=== PATIENT | female | born 1930 | race Caucasian/White ===

== ENCOUNTER 2017-02-08 23:18 | Emergency (ER) | payer MEDICARE, OTHER ==
[2017-02-08 23:42] VITALS: BP 172/76; PULSE 78; RESP 18; TEMP 98.2
[2017-02-09] MEDS ORDERED: FLUORESCEIN STRIPS 1 MG STRIP LEFT EYE ONE
--- NOTE | 2017-02-09 00:14 | ED ---
Eye Problem HPI - General Chief complaint: Eye Problems Stated complaint: Eye Problems Time Seen by Provider: 02/08/17 23:54 Source: patient Mode of arrival: ambulatory Limitations: no limitations - History of Present Illness Initial comments: is an 86-year-old female who takes daily aspirin who presents to the emergency department via private vehicle for evaluation of left eye redness. The patient reports that she was sitting in her home watching the news when she felt a foreign body sensation in her eye. Patient reports that she rubbed her eye and felt as though she might is scratched it. She reports that she noticed that her eye appeared red but decided she would wait and see if it got better. Patient reports that she sat in her home for approximately 2 hours, she states that she was watching the news of the devastating earthquake in [place] today and praying with her prayer book, which she does every night. Patient reports that she was getting ready to go to bed and went back to the restroom at which time she noticed that her left eye was significantly more red. She reports it looked as though there was blood in her eye. However there is no blood coming from her eye. Patient had no pain in her eye. She did put some lubricating eyedrops in her eye however this did not help. She showed her the findings of her eye and he insisted that she come to the emergency department for evaluation. She denies any pain in her eye, any vision changes, any foreign body sensation in her eye. She does report a history of this happening and her other eye, however that occurred spontaneously one morning she woke up and noticed there is blood in her eye she was evaluated by her eye doctor and advised that there was nothing to do. She became concerned about this because she was worried she may have caused injury to her eye when she wiped her eye earlier in the night. - Related Data Home Medications Medication Instructions Recorded Confirmed Aspirin [Adult Low Dose Aspirin EC] 81 mg PO DAILY 01/27/16 01/28/16 Atenolol [Tenormin] 50 mg PO DAILY 01/27/16 01/28/16 Biotin 5 mg PO DAILY 01/27/16 01/28/16 Fiber Powder 1 dose PO DIRECTED PRN 01/27/16 Meclizine [Antivert] 12.5 mg PO DAILY 01/27/16 01/28/16 Meloxicam [Mobic] 15 mg PO DAILY 01/27/16 01/28/16 Multivit-Min/FA/Lycopen/Lutein 1 each PO DAILY 01/27/16 01/28/16 [Centrum Silver Tablet] Vitamin B Complex 1 each PO DAILY 01/27/16 01/27/16 traMADol HCL [Ultram] 50 mg PO TID PRN 01/27/16 01/28/16 Allergies Allergy/AdvReac Type Severity Reaction Status Date / Time UNCOATED ASPIRIN AdvReac Unknown STOMACH Uncoded 02/08/17 23:36 PAIN Review of Systems ROS Statement: Those systems with pertinent positive or pertinent negative responses have been documented in the HPI. ROS Other: All systems not noted in ROS Statement are negative. Constitutional: Denies: fever Eyes: Reports: as per HPI. Denies: eye pain, eye discharge, vision change ENT: Denies: throat pain Respiratory: Denies: cough, dyspnea Cardiovascular: Denies: chest pain, palpitations Endocrine: Denies: fatigue Gastrointestinal: Denies: nausea Musculoskeletal: Denies: back pain Skin: Denies: rash, lesions Hematological/Lymphatic: Reports: easy bleeding, easy bruising Past Medical History Past Medical History: Hypertension, Osteoarthritis (OA), Syncope Additional Past Medical History / Comment(s): PAST HX OF GERD., ARTHRITIS IN KNEES-STATES CORTISONE INJECTIONS IN KNEES 2-3 WEEKS AGO.,CONSTIPATION. History of Any Multi-Drug Resistant Organisms: None Reported Additional Past Surgical History / Comment(s): OVARIES REMOVED () Past Anesthesia/Blood Transfusion Reactions: No Reported Reaction Past Psychological History: No Psychological Hx Reported Smoking Status: Never smoker Past Alcohol Use History: None Reported Past Drug Use History: None Reported - Past Family History Father Family Medical History: Cancer Additional Family Medical History / Comment(s): STOMACH CANCER General Exam Limitations: no limitations General appearance: alert, in no apparent distress Head exam: Present: atraumatic, normocephalic Eye exam: Present: normal appearance, PERRL, conjunctival injection. Absent: scleral icterus, nystagmus, periorbital swelling, periorbital tenderness ENT exam: Present: normal exam Neck exam: Present: normal inspection Respiratory exam: Present: normal lung sounds bilaterally. Absent: respiratory distress Cardiovascular Exam: Present: regular rate, normal rhythm GI/Abdominal exam: Present: soft. Absent: distended, tenderness, guarding, rebound, rigid, normal bowel sounds Rectal exam: Present: deferred Extremities exam: Present: normal inspection Back exam: Present: normal inspection Neurological exam: Present: alert, oriented X3, CN II-XII intact Psychiatric exam: Present: normal affect, normal mood Skin exam: Present: warm, dry, intact, normal color Course Vital Signs 02/08/17 23:36 Temperature 98.2 F Pulse Rate 78 Respiratory 18 Rate Blood Pressure 172/76 O2 Sat by Pulse 98 Oximetry Medical Decision Making - Medical Decision Making Patient was seen and evaluated Vital Signs were reviewed History was obtained from the patient Physical exam is concerning for some conjunctival hemorrhage, there is no hyphema, there is no significant trauma to the eye Patient reports no change in her vision is able to read by name tag with no difficulty Patient's eye was anesthetized with proparacaine drops and fluorescein drops were instilled into the eye. The eye was evaluated under a Rachel lamp which revealed no uptake of the fluorescein. There was no evidence of corneal abrasion or laceration. David sign was negative. I advised the patient that she does not appear to have a corneal abrasion or any injury to the surface of the eye that would require antibiotics. I advised her that the discoloration of her eye should resolve spontaneously however I recommend that she follow-up with her eye doctor or the splitting machine operator helper on-call in the next 48 hours for reevaluation. I advised the patient that should she develop any change in vision she needs to call 911 or be brought immediately to the nearest emergency department for reevaluation. All questions pertaining to care were answered to the best of my ability and the patient was discharged home in stable condition Disposition Clinical Impression: Subconjunctival hemorrhage Disposition: HOME SELF-CARE Condition: Good Instructions: Eye Foreign Body (ED) Referrals: Francine Mcdaniels DO [Primary Care Provider] - 1-2 days Hank Dias MD [STAFF PHYSICIAN] - 1-2 days Time of Disposition: 00:14
[2017-02-09] MEDS ORDERED: PROPARACAINE 0.5% OPHTH DROPS 15 ML BTL LEFT EYE SCH (00:15)
== END 2017-02-09 00:26 | disposition home or self-care (01) ==
LOC: EC 23:18
DX: H11.32 Conjunctival hemorrhage, left eye (principal); I10 Essential (primary) hypertension; Z79.1 Long term (current) use of non-steroidal anti-inflammatories (NSAID); Z79.82 Long term (current) use of aspirin; Z79.899 Other long term (current) drug therapy; Z88.6 Allergy status to analgesic agent
CPT/HCPCS: 99283

== ENCOUNTER → 2017-06-01 | Outpatient (CLI) | payer MEDICARE, OTHER ==
--- NOTE | 2017-06-02 12:55 | MM ---
Reason for exam: screening (asymptomatic). Last mammogram was performed 1 year and 1 month ago. History: Patient is postmenopausal. Took estrogen for 2 years beginning at age 55. Physical Findings: A clinical breast exam by your physician is recommended on an annual basis and results should be correlated with mammographic findings. MG 3D Screening Mammo W/Cad Bilateral CC and MLO view(s) were taken. Prior study comparison: April 27, 2016, bilateral MG 3d screening mammo w/cad. April 22, 2015, bilateral MG screening mammo w CAD. The breast tissue is heterogeneously dense. This may lower the sensitivity of mammography. Finding: There are typically benign vascular, round calcifications in both breasts. There is no discrete abnormality. ASSESSMENT: Benign, BI-RAD 2 RECOMMENDATION: Routine screening mammogram of both breasts in 1 year.
== END | disposition home or self-care (01) ==
LOC: RADMAMWWP 13:49
PROVIDERS: ATTEND Family Medicine
DX: Z12.31 Encounter for screening mammogram for malignant neoplasm of breast (principal)
CPT/HCPCS: 77063; 77067

== ENCOUNTER → 2017-12-13 | Outpatient (CLI) | payer MEDICARE, OTHER ==
[2017-12-13 10:46] LABS: Appearance,Urine Clear (Clear); Bilirubin,Urine Negative (Negative); Blood,Urine Negative (Negative); Color,Urine Yellow; Glucose,Urine (UA) Negative (Negative); Ketones,Urine Negative (Negative); Leukocyte Esterase,Urine Trace (Negative); Mucus,Urine Rare /hpf; Nitrite,Urine Negative (Negative); Protein,Urine Negative (Negative); RBC,Urine <1 /hpf (0-5); Specific Gravity,Urine 1.016 (1.001-1.035); Squamous Epithelial Cell,Urine 1 /hpf (0-4); Urobilinogen,Urine <2.0 mg/dL (<2.0); WBC,Urine <1 /hpf (0-5)
[2017-12-13 10:48] LABS: INR 1.1 (<1.2); Partial Thromboplastin Time 24.4 sec (22.0-30.0); Prothrombin Time 10.4 sec (9.0-12.0)
[2017-12-13 10:49] LABS: HCT 33.8 % (34.0-46.0); HGB 11.6 gm/dL (11.4-16.0); MCH 32.9 pg (25.0-35.0); MCHC 34.3 g/dL (31.0-37.0); MCV 95.8 fL (80.0-100.0); Mean Platelet Volume 7.4; Platelet Count 155 k/uL (150-450); RBC 3.53 m/uL (3.80-5.40); RDW 12.8 % (11.5-15.5); WBC 5.5 k/uL (3.8-10.6)
[2017-12-13 10:57] LABS: Albumin 4.2 g/dL (3.5-5.0); Calcium 10.4 mg/dL (8.4-10.2); Potassium 4.3 mmol/L (3.5-5.1); Total Bilirubin 0.6 mg/dL (0.2-1.3); Total Protein 6.7 g/dL (6.3-8.2)
== END | disposition home or self-care (01) ==
LOC: LABPAT 09:40
PROVIDERS: ATTEND Orthopaedic Surgery
DX: Z01.818 Encounter for other preprocedural examination (principal); Z01.812 Encounter for preprocedural laboratory examination
CPT/HCPCS: 36415; 80053; 81001; 85027; 85610; 85730; 87070; 93005

== ENCOUNTER → 2018-01-13 | Outpatient (CLI) | payer MEDICARE, OTHER ==
[2018-01-13 15:03] LABS: Basophils % (A) 1 %; Eosinophils # (A) 0.1 k/uL (0-0.7); Eosinophils % (A) 1 %; HCT 34.3 % (34.0-46.0); Lymphocytes # (A) 1.4 k/uL (1.0-4.8); Lymphocytes % (A) 22 %; MCH 30.6 pg (25.0-35.0); MCHC 32.2 g/dL (31.0-37.0); MCV 95.2 fL (80.0-100.0); Mean Platelet Volume 6.9; Monocytes # (A) 0.4 k/uL (0-1.0); Monocytes % (A) 7 %; Neutrophils # (A) 4.3 k/uL (1.3-7.7); Neutrophils % (A) 68 %; Platelet Count 264 k/uL (150-450); RDW 12.5 % (11.5-15.5); WBC 6.4 k/uL (3.8-10.6)
[2018-01-13 15:27] LABS: Appearance,Urine Clear (Clear); Bacteria,Urine Few /hpf; Bilirubin,Urine Negative (Negative); Blood,Urine Moderate (Negative); Color,Urine Yellow; Glucose,Urine (UA) Negative (Negative); Hyaline Casts,Urine 6 /lpf (0-2); Ketones,Urine Negative (Negative); Leukocyte Esterase,Urine Moderate (Negative); Mucus,Urine Few /hpf; Nitrite,Urine Negative (Negative); Protein,Urine 1+ (Negative); RBC,Urine 11 /hpf (0-5); Specific Gravity,Urine 1.023 (1.001-1.035); Squamous Epithelial Cell,Urine 2 /hpf (0-4); WBC,Urine 1 /hpf (0-5)
== END | disposition home or self-care (01) ==
LOC: LABPAT 14:43
PROVIDERS: ATTEND Orthopaedic Surgery
DX: Z01.812 Encounter for preprocedural laboratory examination (principal); M17.12 Unilateral primary osteoarthritis, left knee
CPT/HCPCS: 36415; 81001; 85025

== ENCOUNTER 2018-01-16 09:50 | Inpatient (IN) | payer MEDICARE, OTHER ==
[2018-01-13 09:08] VITALS: BMI 24.0
[~2018-01-16 09:50] MED LIST: ACETAMINOPHEN TAB 500 MG TAB PO ONE; DEXAMETHASONE SOD PHOSPHATE 10 MG/ML 1 ML VIAL IV ONE; LACTATED RINGERS 1,000 ML IV SCH; MIDAZOLAM 2 MG/2 ML VIAL IV PRN; ONDANSETRON 4 MG/2 ML VIAL IVP ONE; TRANEXAMIC ACID 1,000 MG in SODIUM CHLORIDE 0.9% 50 ML IVPB ONE; ceFAZolin IN SWFI 2 GM/20 ML SYRINGE IVP ONE; fentaNYL (PF) 50 MCG/ML 2 ML AMP IV PRN
[2018-01-16 10:34] VITALS: BP 185/79; PULSE 57; RESP 16; TEMP 98.2
[2018-01-16] MEDS ORDERED: LIDOCAINE 1% 20 ML VIAL (10MG/ML) FOR IV START INTRADERMA ONE (10:42)
[2018-01-16] MEDS ORDERED: ROPIVACAINE 246.25 MG, EPINEPHrine 0.5 MG, KETOROLAC 30 MG, cloNIDine HCL/PF 80 MCG, WA... MISCELLANE ONE ×5 (12:26)
== END 2018-01-16 13:00 | disposition home or self-care (01) | DRG 554 ==
LOC: 2ORMAIN 09:50
PROVIDERS: ADMIT Orthopaedic Surgery; ATTEND Orthopaedic Surgery
DX: M17.0 Bilateral primary osteoarthritis of knee (principal); I10 Essential (primary) hypertension; Z53.09 Procedure and treatment not carried out because of other contraindication; M81.0 Age-related osteoporosis without current pathological fracture; Z79.1 Long term (current) use of non-steroidal anti-inflammatories (NSAID); Z79.82 Long term (current) use of aspirin; Z79.83 Long term (current) use of bisphosphonates; Z79.899 Other long term (current) drug therapy; Z87.891 Personal history of nicotine dependence; Z90.710 Acquired absence of both cervix and uterus; Z80.0 Family history of malignant neoplasm of digestive organs

== ENCOUNTER 2018-01-20 10:51 | Inpatient (IN) | payer MEDICARE, OTHER ==
[2018-01-17 15:43] VITALS: BMI 24.0
[~2018-01-20 10:51] MED LIST changes: -DEXAMETHASONE SOD PHOSPHATE 10 MG/ML 1 ML VIAL IV ONE
[2018-01-20] MEDS ORDERED: ePHEDrine SULFATE/0.9% NACL/PF 50 MG/5 ML SYRINGE IV ONE (12:24)
[2018-01-20] MEDS ORDERED: MIDAZOLAM 2 MG/2 ML VIAL ONE (12:24)
[2018-01-20] MEDS ORDERED: SODIUM CHLORIDE 0.9% 100 ML BAG ONE (12:24)
[2018-01-20] MEDS ORDERED: TRANEXAMIC ACID 1,000 MG/10 ML VIAL ONE (12:24)
[2018-01-20] MEDS ORDERED: ROPIVACAINE 246.25 MG, EPINEPHrine 0.5 MG, KETOROLAC 30 MG, cloNIDine HCL/PF 80 MCG, WA... MISCELLANE STA ×5 (12:49)
[2018-01-20] MEDS ORDERED: ceFAZolin 3,000 MG in SODIUM CHLORIDE 0.9% IRRIGATIO 3,000 ML IRRIGATION ONE (13:07)
[2018-01-20] MEDS ORDERED: HYDROmorphone 1 MG/ML 1 ML SYRINGE IVP PRN ×3 (14:42)
[2018-01-20] MEDS ORDERED: BISACODYL 10 MG SUPP RECTAL PRN (14:42)
[2018-01-20] MEDS ORDERED: ONDANSETRON 4 MG/2 ML VIAL IVP PRN (14:42)
[2018-01-20] MEDS ORDERED: NALOXONE 0.4 MG/ML 1 ML VIAL IV PRN (14:42)
[2018-01-20] MEDS ORDERED: NA PHOS,M-B/NA PHOS,DI-BA 133 ML ENEMA RECTAL PRN (14:42)
[2018-01-20] MEDS ORDERED: MAGNESIUM HYDROXIDE 2,400 MG/10 ML CUP PO PRN (14:42)
[2018-01-20] MEDS ORDERED: hydrOXYzine PAMOATE 25 MG CAP PO PRN (14:42)
[2018-01-20] MEDS ORDERED: LACTATED RINGERS 1,000 ML IV ONE (15:14)
[2018-01-20] MEDS: LACTATED RINGERS 1,000 ML IV SCH (16:06)
[2018-01-20] MEDS: HYDROcodone/APAP 5-325MG 1 EACH TAB PO PRN (16:10)
[2018-01-20] MEDS ORDERED: WARFARIN 2.5 MG TAB PO ONE (18:00)
--- NOTE | 2018-01-20 18:09 | P.OP ---
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 Moderate osteoporosis left knee OPERATION: Left knee cemented total replacement arthroplasty. ANESTHESIA: Spinal ESTIMATED BLOOD LOSS: 50 ml. DIRECTOR OF CARDIOLOGY: Taty White PA-C (assistance with: patient positioning, retraction, exposure, hemostasis, leg positioning, implantation, irrigation, closure, dressing) COMPLICATIONS: None apparent. COMPONENTS IMPLANTED: Persona system from [employer] INDICATIONS: Mrs. De La Torre is a 87 year old female with a history of left knee osteoarthritis and moderate genu valgum. The operation of knee replacement has been discussed at length in the office, as well as potential risks and complications. These are inclusive of, but not limited to: bleeding, infection , scarring, discomfort, blood vessel and nerve damage, need for further surgery , failure to relieve symptoms, persistence, recurrence, or worsening of problems , loosening, dislocation, wear, blood clot, pulmonary embolism, , gait dysfunction, stiffness, and other risks as discussed in the office. The patient elects to proceed and the consent form has been signed. PROCEDURE: The patient was taken to the operating room and positioned on the operating room table in the supine position. Anesthesia was initiated. Care was taken to make sure that all pressure points were adequately padded. The operative lower extremity was prepped and draped in the usual aseptic fashion using ChloraPrep. Ioban drape was used for the case and the patient received intravenous antibiotics within one hour of the incision. A pneumotourniquet and leg butts were used for the case. The limb was exsanguinated with an Esmarch bandage and the tourniquet was inflated to 350 mmHg. Time-out was called confirming the patients identity, side, procedure and administration of antibiotics. The incision was then created midline directly over the knee, carried down through skin and into the subcutaneous tissues and down to fascia. Full thickness subcutaneous medial flap was developed. Medial parapatellar arthrotomy was performed and the interior of the knee was inspected. There was end-stage osteoarthritis of the knee with a mild to moderate genu valgum type deformity. Also noted was moderate osteoporosis , as evidenced by diminished cortical bone density as well as moderate softening of the cancellus bone, discovered during the course of the operation. The fat pad was excised and limited proximal medial release on the tibia was completed using meticulous dissection. The anterior cruciate ligament was taken down. The exposure was excellent. The knee was flexed 90 degrees and the patella was everted. A spot was chosen on the femur approximately 1 cm anterior to the posterior cruciate ligament insertion and an intramedullary hole was created within the femur. The intramedullary guide was then set to 5 degrees of valgus. The distal cutting block was attached and pinned into position. An appropriate amount of distal femoral resection was set. The oscillating saw was then used to make the distal femoral cut. This cut was confirmed to be flat with the flat end of an osteotome. The retractors were placed around the tibia and the tibial surface was addressed. The angle and depth of resection was adjusted using an extramedullary cutting guide. The guide had a built-in 3 degree posterior slope cut. Once the cutting guide was adjusted appropriately and in line with the axis of the tibia and confirmed to be in good position in relation to the second metatarsal and transmalleolar axis, the tibial cut was then created with protection of the posterior neurovascular structures and the collateral ligaments. The tibial cut surface was removed and sized. Femoral sizing was then accomplished using anterior referencing. Care was taken to analyze the posterior condyles for signs of deficiency or severe wear, and adjustments to the guide were made, as appropriate. Moderate to severe posterior spurring was noted, as well as a moderately to severely tight posterior cruciate ligament which therefore was released, see below. 3 degree external rotation pins were placed. The cutting jig for the femur was applied to these pins. The planned cuts were further analyzed prior to performing them with the oscillating saw. No femoral notching was produced. Bone fragments were removed and the cut surfaces were finished, as necessary, with a reciprocating saw. Spacer block technique was then used to confirm that the flexion and extension gaps were equal. Soft tissue releases and adjustment of the tibial and/or femoral cuts were made, as necessary, until the gaps were equal. This included release of the posterior cruciate ligament, which was tight in this patient and , if left unreleased, would have resulted in poor kinematics and possibly early loosening. The femur was then further finished for a posterior cruciate ligament substituting component. Patellar resurfacing was performed using a reamer. The size of the required patellar component was estimated and the patellar surface was then reamed down to a residual thickness which would recreate the mary's igloo thickness with the component. The exact placement of the patellar component was adjusted for position based on preoperative x-rays and intraoperative findings. Prior to placing trial components, anesthetic solution consisting of ropivicaine with epinephrine, ketorolac, and clonidine was injected carefully and methodically in a grid pattern using aspiration technique into the soft tissue around the knee circumferentially, starting with the deeper tissues first and progressing to fascia, and then finally the skin/subcutaneous tissue. Particular care was taken when injecting the posterior capsule. The trial components were inserted. The tibial tray was allowed to self center and the patella was noted to track very well. The position of the tibial component was marked and the tibia was then finished for a stemmed tibial component. Due to the patient's osteoporosis, I planned for a small 30 mm stem extension on the tibial component. Cement was mixed on the back table and applied to the final components. Trial components were removed and the cut surfaces of the bone were pulse lavaged thoroughly and dried. Cement was then applied to the tibial surface and pressurized into the surface using finger pressurization technique. The tibial component was then applied and excess cement was removed after it was impacted securely and noted to be flush with the cut surface. In similar fashion, the cement was applied to the cut femoral surface, pressurized in using finger pressurization and the component was impacted into place. Excess cement was removed. The polyethylene spacer was then implanted and locked into position. The patellar component was then applied in similar technique and a patellar clamp was used to hold the patella in place as the cement hardened. Once the cement had fully hardened, the knee was reinspected. Any other cement extrusion was removed and final kinematic testing showed range of motion from 0 to 130 degrees with excellent stability, both medially and laterally and appropriate alignment of the leg. Patellar tracking was excellent. The knee was then thoroughly pulse lavaged with normal saline. The tourniquet was deflated and hemostasis was obtained with electrocautery and IV tranexamic acid, 1 g given at the start of the operation and 1 g at the start of closure. Closure was with #2 Ethibond in the fascia and supplemented with #2 Quill, 2-0 Vicryl suture was used for the subcutaneous tissues and 3-0 Quill for the skin. Dermabond/Steri-Strips were then applied. A lightly compressive dressing was applied using Webril and an Sharad wrap. The patient was then transferred to [facility] and taken to the recovery room in stable condition. Sponge and needle counts were correct.
[2018-01-20] MEDS: ceFAZolin IN SWFI 2 GM/20 ML SYRINGE IVP SCH (19:51)
[2018-01-20] MEDS: SENNOSIDES-DOCUSATE SODIUM 1 EACH TAB PO SCH (19:51)
[2018-01-20] MEDS ORDERED: TEMAZEPAM 15 MG CAP PO PRN (22:00)
[2018-01-20] MEDS ORDERED: LORATADINE 10 MG TAB PO PRN (23:35)
[2018-01-21] MEDS: LACTATED RINGERS 1,000 ML IV SCH ×3 (00:26→21:53)
[2018-01-21] MEDS: ceFAZolin IN SWFI 2 GM/20 ML SYRINGE IVP SCH (05:08)
[2018-01-21] MEDS ORDERED: HYDROmorphone 2 MG TAB PO PRN ×3 (05:28→05:29)
[2018-01-21 07:48] LABS: Basophils % (A) 0 %; Eosinophils # (A) 0.1 k/uL (0-0.7); Eosinophils % (A) 1 %; HCT 31.1 % (34.0-46.0); HGB 10.3 gm/dL (11.4-16.0); Lymphocytes # (A) 1.2 k/uL (1.0-4.8); Lymphocytes % (A) 18 %; MCH 31.3 pg (25.0-35.0); MCHC 32.9 g/dL (31.0-37.0); MCV 95.2 fL (80.0-100.0); Mean Platelet Volume 6.6; Monocytes # (A) 0.3 k/uL (0-1.0); Monocytes % (A) 5 %; Neutrophils # (A) 4.8 k/uL (1.3-7.7); Neutrophils % (A) 74 %; Platelet Count 221 k/uL (150-450); RBC 3.27 m/uL (3.80-5.40); RDW 12.7 % (11.5-15.5); WBC 6.5 k/uL (3.8-10.6)
[2018-01-21 07:50] LABS: INR 1.8 (<1.2); Prothrombin Time 16.4 sec (9.0-12.0)
[2018-01-21 07:59] LABS: Calcium 9.8 mg/dL (8.4-10.2); Potassium 4.6 mmol/L (3.5-5.1)
[2018-01-21] MEDS: ATENOLOL 50 MG TAB PO SCH (08:34)
[2018-01-21] MEDS: CALCIUM CARBONATE 500 MG CHEWABLE PO SCH (08:34)
[2018-01-21] MEDS: ASPIRIN 81 MG PO SCH (08:34)
[2018-01-21] MEDS: CHOLECALCIFEROL 1,000 UNIT TAB PO SCH (08:34)
[2018-01-21] MEDS: HYDROcodone/APAP 5-325MG 1 EACH TAB PO PRN ×3 (08:38→21:41)
[2018-01-21] MEDS ORDERED: NON-FORMULARY DRUG (Vitamin B Complex [Vitamin B Complex] 1 CAP) PO SCH (09:00)
--- NOTE | 2018-01-21 09:21 | CONS ---
CONSULTATION REASON FOR CONSULTATION: Advice regarding hypertension, GERD, and other medical issues requested by Dr. Lacy. HISTORY OF PRESENT ILLNESS: This 87-year-old woman with past medical history of GERD, hypertension, history of DJD, history of syncope, being followed by Dr. Mcdaniels in the outpatient setting, was admitted after left total knee arthroplasty. The patient also had hypertension , DJD. There is no history of fever, rigors or chills. No history of headache, loss of consciousness, seizures. No chest pain, palpitations, shortness of breath at this time. PAST MEDICAL HISTORY: GERD, hypertension, history of DJD, history of syncope. MEDICATIONS: Prior to admission include: 1. Ultram 50 mg t.i.d. p.r.n. 2. Vitamin B complex 1 p.o. daily. 3. Bactrim DS 1 p.o. b.i.d. 4. Multivitamins 1 p.o. daily. 5. Mobic 15 mg b.i.d. 6. Claritin 10 mg daily. 7. Boniva 150 mg Q 30 days. 9. Vitamin D 1000 p.o. daily. 10.Calcium 600 mg p.o. 11.Tenormin 50 mg p.o. 12.Aspirin 81 mg. 13.Coumadin 2.5 mg daily. 14.Senokot-S 1 tablet p.o. b.i.d. 15.Hydrocodone 5 mg 1-2 tablets q.4h to 6 p.r.n. ALLERGIES: FOSAMAX, MOTRIN, VIOXX, CODEINE, ASPIRIN. FAMILY HISTORY: History of stomach cancer in the family. SOCIAL HISTORY: No history of smoking. No history of alcohol intake. REVIEW OF SYSTEMS: ENT: No diminished hearing or diminished vision. CARDIOVASCULAR: No angina. RESPIRATORY: As mentioned earlier. GI: No nausea or vomiting. no dysuria. CENTRAL NERVOUS SYSTEM: No numbness or weakness. ALLERGY/IMMUNOLOGY: No asthma or hayfever. MUSCULOSKELETAL as mentioned earlier. HEMATOLOGY/ONCOLOGY: No history of anemia. ENDOCRINE: No history of diabetes or hypothyroidism. CONSTITUTIONAL: As mentioned earlier. Dermatology: Negative. Rheumatology: Negative. Psychiatry: As mentioned earlier. PHYSICAL EXAMINATION: GENERAL: Alert, oriented times three. VITAL SIGNS: Pulse 57, blood pressure 121/67, respirations 16, temperature 98.2 , pulse ox 97 percent on room air. HEENT: Conjunctivae normal. Oral mucosa moist. Neck is no jugular venous distention. No carotid bruit. No lymph node enlargement. CARDIOVASCULAR: S1, S2 muffled. RESPIRATORY: Breath sounds diminished in the bases. No rhonchi. No crackles. ABDOMEN: Soft, nontender. No mass palpable. LEGS: Status post left knee arthroplasty. NERVOUS SYSTEM: Higher functions as mentioned earlier. Moves all four extremities. No focal deficits. Lymphatics: No lymph nodes palpable in the neck, axillae or groin. SKIN: No ulcer, rash or bleeding. LABS: At this time labs are not available. The preop labs hematology: Hemoglobin is 11. Coags are normal. Chemistry shows creatinine 1.10. UA showed some dirty urine without any obvious evidence of UTI. ASSESSMENT: 1. Status post left total knee arthroplasty. 2. For severe degenerative joint disease. 3. Hypertension. 4. History of syncope. 5. History of gastroesophageal reflux disease. RECOMMENDATIONS AND DISCUSSION: In this 87-year-old woman who presented with multiple medical problems. We will monitor the patient closely. Continue the current medications, management and symptomatic treatment. Otherwise at this time, I recommend resume the home medications. DVT prophylaxis. Incentive spirometry. We will follow the patient closely with you. Thank you for letting us participate in the care of this patient. CORNELL / CATALINAN: [id number] / RENATE
--- NOTE | 2018-01-21 17:21 | PN ---
PROGRESS NOTE DATE OF SERVICE: 01/21/2018 This 87-year-old woman who was admitted after left total knee arthroplasty improved significantly. No chest pain. No palpitations. No fever. PHYSICAL EXAMINATION: On exam, alert and oriented x3. Pulse 62, blood pressure 147/71, respiration 12, temperature 99.1, pulse ox 98% in room air. HEENT: Conjunctivae normal. Oral mucosa moist. Neck is no jugular venous distention. No carotid bruit. No lymph node enlargement. CARDIOVASCULAR: S1 and S2 muffled. RESPIRATORY: Breath sounds diminished at the bases. No rhonchi, no crackles. ABDOMEN: Soft, nontender. LEGS: Status post knee arthroplasty. NERVOUS SYSTEM: No focal deficits. LABS: WBC 6.5, hemoglobin 10.3, INR 1.8. ASSESSMENT: 1. Status post left total knee joint arthroplasty. 2. Gait dysfunction. 3. Severe degenerative joint disease. 4. Hypertension. 5. History of syncope. 6. History of gastroesophageal reflux disease. RECOMMENDATIONS AND DISCUSSION: Recommend to continue current medications, continue symptomatic treatment. Continue incentive spirometry, pain management. Increase ambulation. DVT prophylaxis. Closely followed with Orthopedic Surgery. Further recommendations to follow. MMODL / IJN: [id number] /
--- NOTE | 2018-01-21 17:29 | P.PN ---
Subjective Progress Note Date: 01/21/18 Principal diagnosis: S/P left TKA Patient is seen at bedside this morning. She is postop day #1 from left total knee arthroplasty. She has minimal pain at the surgical site as expected but denies any new complaints. He denies numbness, tingling or calf pain. Review of systems is negative for fever, chills, chest pain, shortness of breath or other Objective - Vital Signs Vital signs: Vital Signs Temp 99.1 F 01/21/18 15:00 Pulse 62 01/21/18 15:00 Resp 12 01/21/18 15:00 BP 147/71 01/21/18 15:00 Pulse Ox 98 01/21/18 15:00 Intake & Output 01/20/18 01/21/18 01/21/18 18:59 06:59 18:59 Intake Total 1343 1700 240 Output Total 50 Balance 1293 1700 240 Weight 63.503 kg Intake: IV 1121 Intake, IV Titration 1350 Amount Lactated Ringers 1,000 ml 1350 @ 100 mls/hr IV .Q10H [facility]I Rx#:[id number] Oral 222 350 240 Output: Estimated Blood Loss 50 Other: # Voids 2 - Exam Inspection reveals a benign surgical wound. There is no active bleeding or drainage. Neurovascular status is intact throughout the lower extremity with motor and sensation fully intact. Calf is soft and nontender. 2+ dorsalis pedis pulse and less than 2 second cap refill is present - Constitutional General appearance: Present: no acute distress - Psychiatric Psychiatric: Present: A&O x's 3, appropriate affect, intact judgment & insight - Labs CBC & Chem 7: 01/21/18 07:10 01/21/18 07:10 Labs: Abnormal Lab Results - Last 24 Hours (Table) 01/21/18 01/21/18 01/21/18 Range/Units 07:10 07:10 07:10 RBC 3.27 L (3.80-5.40) m/uL Hgb 10.3 L (11.4-16.0) gm/dL Hct 31.1 L (34.0-46.0) % PT 16.4 H (9.0-12.0) sec INR 1.8 H (<1.2) Creatinine 1.09 H (0.52-1.04) mg/dL Assessment and Plan (1) Status post total left knee replacement Narrative/Plan: She will continue with routine postop orthopedic protocol including pain management, wound care, DVT prophylaxis and medical management. Expect that she will transfer to home tomorrow vs rehab Tuesday/Tuesday. Current Visit: Yes Status: Acute Priority: Medium Code(s): Z96.652 - PRESENCE OF LEFT ARTIFICIAL KNEE JOINT SNOMED Code(s): 2759836741541 Time with Patient: Less than 30
[2018-01-21] MEDS ORDERED: WARFARIN 2.5 MG TAB PO ONE (18:00)
[2018-01-21] MEDS: SENNOSIDES-DOCUSATE SODIUM 1 EACH TAB PO SCH (21:03)
[2018-01-22] MEDS: HYDROcodone/APAP 5-325MG 1 EACH TAB PO PRN ×4 (03:37→23:44)
[2018-01-22 07:48] LABS: INR 2.4 (<1.2); Prothrombin Time 21.2 sec (9.0-12.0)
[2018-01-22] MEDS: CALCIUM CARBONATE 500 MG CHEWABLE PO SCH (08:33)
[2018-01-22] MEDS: CHOLECALCIFEROL 1,000 UNIT TAB PO SCH (08:33)
[2018-01-22] MEDS: ASPIRIN 81 MG PO SCH (08:33)
[2018-01-22] MEDS: ATENOLOL 50 MG TAB PO SCH (08:33)
[2018-01-22] MEDS: LACTATED RINGERS 1,000 ML IV SCH ×2 (08:33→18:01)
--- NOTE | 2018-01-22 10:13 | P.PN ---
Subjective Progress Note Date: 01/22/18 Principal diagnosis: S/P left TKA Patient is seen at bedside this morning. She is postop day #2 from left total knee arthroplasty. She has minimal pain at the surgical site as expected but denies any new complaints. She denies numbness, tingling or calf pain. Review of systems is negative for fever, chills, chest pain, shortness of breath or other Objective - Vital Signs Vital signs: Vital Signs Temp 99.0 F 01/22/18 08:25 Pulse 62 01/22/18 08:25 Resp 18 01/22/18 08:25 BP 144/63 01/22/18 08:25 Pulse Ox 97 01/22/18 08:25 Intake & Output 01/21/18 01/22/18 01/22/18 18:59 06:59 18:59 Intake Total 240 300 Balance 240 300 Intake: Oral 240 300 Other: Voiding Method Bedside Commode # Voids 1 1 - Exam Inspection reveals a benign surgical wound. There is no active bleeding or drainage. Neurovascular status is intact throughout the lower extremity with motor and sensation fully intact. Calf is soft and nontender. 2+ dorsalis pedis pulse and less than 2 second cap refill is present - Constitutional General appearance: Present: no acute distress - Psychiatric Psychiatric: Present: A&O x's 3, appropriate affect, intact judgment & insight - Labs CBC & Chem 7: 01/21/18 07:10 01/21/18 07:10 Labs: Abnormal Lab Results - Last 24 Hours (Table) 01/22/18 Range/Units 07:25 PT 21.2 H (9.0-12.0) sec INR 2.4 H (<1.2) Assessment and Plan (1) Status post total left knee replacement Narrative/Plan: She will continue with routine postop orthopedic protocol including pain management, wound care, DVT prophylaxis and medical management. Rehab has been requested. Expect transfer Tuesday. Current Visit: Yes Status: Acute Priority: Medium Code(s): Z96.652 - PRESENCE OF LEFT ARTIFICIAL KNEE JOINT SNOMED Code(s): 0861615713057 Time with Patient: Less than 30
--- NOTE | 2018-01-22 16:31 | PN ---
PROGRESS NOTE DATE OF SERVICE: 01/22/2018 This 87-year-old woman was admitted after left knee arthroplasty is improved significantly. No chest pain. No palpitations. No fever. PT, OT evaluation, possible ECF rehab. No chest pain. No palpitations. PHYSICAL EXAM: Alert and oriented x3. Pulse 62, blood pressure 140/66, respiration 18, temperature 98 degrees, pulse ox 97% on room air. HEENT: Conjunctivae normal. Oral mucosa moist. NECK: No jugular venous distention. CARDIOVASCULAR: S1, S2 RESPIRATORY: Breath sounds diminished in the bases. No rhonchi no crackles. ABDOMEN: Soft, nontender. LEGS: Status post surgery. NERVOUS SYSTEM: No focal deficits. LABS: WBC 6.9, hemoglobin 10.2, INR is 2.4. ASSESSMENT: 1. Status post left total knee arthroplasty. 2. Gait dysfunction. 4. Hypertension. 5. History of syncope. 6. History of gastroesophageal reflux disease. RECOMMENDATIONS AND DISCUSSION: I recommend to continue current management and symptomatic treatment. DVT prophylaxis. Incentive spirometry. PT, OT evaluation, possible ECF rehab. Further recommendations to follow. MMODL / IJN: [id number] / MTDD
[2018-01-22] MEDS ORDERED: WARFARIN 2 MG TAB PO ONE (18:00)
[2018-01-22] MEDS: SENNOSIDES-DOCUSATE SODIUM 1 EACH TAB PO SCH (20:05)
[2018-01-23] MEDS: LACTATED RINGERS 1,000 ML IV SCH ×3 (05:23→19:45)
[2018-01-23] MEDS: HYDROcodone/APAP 5-325MG 1 EACH TAB PO PRN ×3 (05:30→17:13)
[2018-01-23 07:42] LABS: Basophils % (A) 0 %; Eosinophils # (A) 0.1 k/uL (0-0.7); Eosinophils % (A) 2 %; HCT 30.6 % (34.0-46.0); HGB 9.8 gm/dL (11.4-16.0); Lymphocytes # (A) 1.4 k/uL (1.0-4.8); Lymphocytes % (A) 22 %; MCH 30.5 pg (25.0-35.0); MCV 95.6 fL (80.0-100.0); Mean Platelet Volume 6.8; Monocytes # (A) 0.4 k/uL (0-1.0); Monocytes % (A) 6 %; Neutrophils # (A) 4.4 k/uL (1.3-7.7); Neutrophils % (A) 68 %; Platelet Count 192 k/uL (150-450); RDW 12.9 % (11.5-15.5); WBC 6.5 k/uL (3.8-10.6)
[2018-01-23 07:49] LABS: INR 1.9 (<1.2)
[2018-01-23] MEDS: CALCIUM CARBONATE 500 MG CHEWABLE PO SCH (08:30)
[2018-01-23] MEDS: ATENOLOL 50 MG TAB PO SCH (08:30)
[2018-01-23] MEDS: CHOLECALCIFEROL 1,000 UNIT TAB PO SCH (08:30)
[2018-01-23] MEDS: ASPIRIN 81 MG PO SCH (08:30)
--- NOTE | 2018-01-23 13:53 | P.PN ---
Subjective Progress Note Date: 01/23/18 Principal diagnosis: S/P left TKA Patient is seen at bedside this morning. She is postop day #3 from left total knee arthroplasty. She has minimal pain at the surgical site as expected and denies any new complaints. She denies numbness, tingling or calf pain. Review of systems is negative for fever, chills, chest pain, shortness of breath or other Objective - Vital Signs Vital signs: Vital Signs Temp 98.8 F 01/23/18 07:25 Pulse 67 01/23/18 07:25 Resp 16 01/23/18 07:25 BP 148/67 01/23/18 07:25 Pulse Ox 97 01/23/18 07:25 Intake & Output 01/22/18 01/23/18 01/23/18 18:59 06:59 18:59 Intake Total 300 240 480 Balance 300 240 480 Intake: Oral 300 240 480 Other: Voiding Method Bedside Commode Bedside Commode Bedside Commode # Voids 2 1 # Bowel Movements 1 - Exam Inspection reveals a benign surgical wound. There is no active bleeding or drainage. Neurovascular status is intact throughout the lower extremity with motor and sensation fully intact. Calf is soft and nontender. 2+ dorsalis pedis pulse and less than 2 second cap refill is present - Constitutional General appearance: Present: no acute distress - Labs CBC & Chem 7: 01/23/18 06:36 01/21/18 07:10 Labs: Abnormal Lab Results - Last 24 Hours (Table) 01/23/18 01/23/18 Range/Units 06:35 06:36 RBC 3.20 L (3.80-5.40) m/uL Hgb 9.8 L (11.4-16.0) gm/dL Hct 30.6 L (34.0-46.0) % PT 17.0 H (9.0-12.0) sec INR 1.9 H (<1.2) Assessment and Plan (1) Status post total left knee replacement Narrative/Plan: She will continue with routine postop orthopedic protocol including pain management, wound care, DVT prophylaxis and medical management. Rehab has been requested. Expect transfer Tuesday. Current Visit: Yes Status: Acute Priority: Medium Code(s): Z96.652 - PRESENCE OF LEFT ARTIFICIAL KNEE JOINT SNOMED Code(s): 4517656971748 Time with Patient: Less than 30
[2018-01-23] MEDS ORDERED: WARFARIN 2 MG TAB PO ONE (18:00)
[2018-01-23] MEDS: SENNOSIDES-DOCUSATE SODIUM 1 EACH TAB PO SCH (19:39)
[2018-01-24] MEDS: HYDROcodone/APAP 5-325MG 1 EACH TAB PO PRN ×3 (01:29→14:49)
[2018-01-24 07:23] VITALS: BP 114/61; PULSE 70; RESP 18; TEMP 98
--- NOTE | 2018-01-24 07:41 | PN ---
PROGRESS NOTE DATE OF SERVICE: 01/23/2018 This 87-year-old woman was admitted after left total knee arthroplasty, improved significantly. Is being closely monitored. No chest pain or palpitation. No fever. PHYSICAL EXAMINATION: On exam, alert and oriented x3. Pulse 71, blood pressure 108/65, respirations 16, temperature 98.7, pulse ox 97% on room air. HEENT: Conjunctivae normal. CARDIOVASCULAR: S1, S2 muffled. RESPIRATORY: Breath sounds diminished at the bases. No rhonchi, no crackles. ABDOMEN: Soft. LEGS: Status post surgery. NERVOUS SYSTEM: No focal deficits. LABS: WBC 6.5, hemoglobin 9.8. ASSESSMENT: 1. Status post left total knee arthroplasty. 2. Gait dysfunction. 3. Hypertension. 4. History of syncope. 5. History of gastroesophageal reflux disease. RECOMMENDATIONS AND DISCUSSION: Recommend to continue current medications, continue symptomatic treatment, continue with PT, OT evaluation and possible ECF rehab. Further recommendations to follow. MMODL / IJN: [id number] /
[2018-01-24 08:00] LABS: Prothrombin Time 18.6 sec (9.0-12.0)
--- NOTE | 2018-01-24 08:09 | P.DS ---
Providers Date of admission: 01/20/18 10:51 Expected date of discharge: 01/24/18 Attending physician: Kishore Lacy Consults: 01/20/18 14:42 Consult Physician Routine Consulting Provider: Ovi Echevarria Consult Reason/Comments: Medical management Do you want consulting provider notified?: Yes Primary care physician: Francine Mcdaniels - Discharge Diagnosis(es) (1) Osteoarthritis of left knee Current Visit: Yes Status: Acute (2) Status post total left knee replacement Current Visit: Yes Status: Acute Priority: Medium Hospital Course: This is an 87-year-old female who was last seen with complaint of continued left knee pain. The patient has a known history of degenerative arthritis of the left knee and presents to discuss surgical options. After discussion and consideration the patient elects to proceed with total left knee arthroplasty. The patient is seen preoperatively by her primary care physician and cleared for surgery. The patient is admitted to [facility] for total left knee arthroplasty. The procedures performed without complication or sequelae. He is doing well postoperatively. Vital signs are stable at discharge. Labs are stable at discharge. the patient is ambulating well with walker with minimal assistance. The patient is discharged to inpatient rehab on postop day #4 pending medical clearance. Please see orders and refer to the [facility] rec for accurate list of medications. Patient Condition at Discharge: Stable Plan - Discharge Summary Discharge Rx Participant: Yes New Discharge Prescriptions: New HYDROcodone/APAP 5-325MG [[place] 5-325] 1 - 2 each PO Q4-6H PRN #50 tab PRN Reason: Pain Sennosides-Docusate Sodium [Senokot-S] 1 tab PO BID #60 tablet Warfarin [Coumadin] 2.5 mg PO DAILY #1 tab No Action traMADol HCL [Ultram] 50 mg PO TID PRN PRN Reason: Pain Meloxicam [Mobic] 15 mg PO DAILY Atenolol [Tenormin] 50 mg PO DAILY Vitamin B Complex 1 cap PO DAILY Multivit-Min/FA/Lycopen/Lutein [Centrum Silver Tablet] 1 tab PO DAILY Aspirin [Adult Low Dose Aspirin EC] 81 mg PO DAILY Ibandronate Sodium [Boniva] 150 mg PO Q30D Loratadine [Claritin] 10 mg PO DAILY PRN PRN Reason: allergies Cholecalciferol [Vitamin D3] 1,000 unit PO DAILY Calcium Carbonate [Calcium] 600 mg PO DAILY Fiber Powder 1 dose PO HS Sulfamethox-Tmp 800-160Mg [Bactrim DS 800-160 mg] 1 tab PO Q12HR Discharge Medication List Aspirin [Adult Low Dose Aspirin EC] 81 mg PO DAILY 01/27/16 [History] Atenolol [Tenormin] 50 mg PO DAILY 01/27/16 [History] Meloxicam [Mobic] 15 mg PO DAILY 01/27/16 [History] Multivit-Min/FA/Lycopen/Lutein [Centrum Silver Tablet] 1 tab PO DAILY 01/27/16 [ History] Vitamin B Complex 1 cap PO DAILY 01/27/16 [History] traMADol HCL [Ultram] 50 mg PO TID PRN 01/27/16 [History] Calcium Carbonate [Calcium] 600 mg PO DAILY 01/13/18 [History] Cholecalciferol [Vitamin D3] 1,000 unit PO DAILY 01/13/18 [History] Fiber Powder 1 dose PO HS 01/13/18 [History] Ibandronate Sodium [Boniva] 150 mg PO Q30D 01/13/18 [History] Loratadine [Claritin] 10 mg PO DAILY PRN 01/13/18 [History] Sulfamethox-Tmp 800-160Mg [Bactrim DS 800-160 mg] 1 tab PO Q12HR 01/17/18 [ History] HYDROcodone/APAP 5-325MG [[place]enderson 5-325] 1 - 2 each PO Q4-6H PRN #50 tab 01/20/18 [Rx] Sennosides-Docusate Sodium [Senokot-S] 1 tab PO BID #60 tablet 01/20/18 [Rx] Warfarin [Coumadin] 2.5 mg PO DAILY #1 tab 01/20/18 [Rx] Follow up Appointment(s)/Referral(s): Taty White PAC [PHYSICIAN PATTERN MARKER] - 2 Weeks [facility], [NON-STAFF] - 1 Week Ambulatory/Diagnostic Orders: Continuous Passive Motion (CPM) Machine [DME.AMB1] Time Frame: 3 Weeks, Facility : [facility], Location: Case Management Prothrombin Time INR [LAB.AMB] Location: None Selected Activity/Diet/Wound Care/Special Instructions: Please call [facility] once home to arrange delivery of CPM - [phone] -May bear wt as tolerated with walker. May shower if no drainage from incision. CPM 5-6h daily. Discharge Disposition: HOME WITH HOME HEALTH SERVICES
[2018-01-24] MEDS: CALCIUM CARBONATE 500 MG CHEWABLE PO SCH (08:58)
[2018-01-24] MEDS: ATENOLOL 50 MG TAB PO SCH (08:58)
[2018-01-24] MEDS: LACTATED RINGERS 1,000 ML IV SCH (08:59)
[2018-01-24] MEDS: CHOLECALCIFEROL 1,000 UNIT TAB PO SCH (08:59)
[2018-01-24] MEDS: ASPIRIN 81 MG PO SCH (08:59)
--- NOTE | 2018-01-24 14:57 | PN ---
PROGRESS NOTE DATE OF SERVICE: 01/24/2018 This 87-year-old woman who was admitted with left total knee arthroplasty is improving significantly. ECF rehab [place] is being planned. No chest pain. No palpitations. The patient has significant issues with constipation. Patient on multiple medications. PAST MEDICAL HISTORY: Reviewed. REVIEW OF SYSTEMS: CARDIOVASCULAR: No angina. RESPIRATORY: As mentioned. GI: As mentioned earlier. : No dysuria. NERVOUS SYSTEM: As mentioned earlier. MUSCULOSKELETAL: As mentioned earlier. CURRENT MEDICATIONS: Reviewed and include: 1. [place] 5 mg q.6h p.r.n. 2. Aspirin 81 mg daily. 3. Tenormin 50 mg daily. 4. Tums 500 mg. 5. Vitamin D. 6. Dilaudid. 7. Restoril. 8. Lactated Ringer's. 9. Narcan. 10.Zofran. 11.Restoril p.r.n. 12.Coumadin 2.5 mg. PHYSICAL EXAMINATION: Alert, oriented x3. Pulse 70, blood pressure 140/61, respiration 18, temperature 98 degrees, pulse ox 98% on room air. HEENT: Conjunctivae normal. Oral mucosa moist. Neck is no jugular venous distention. No carotid bruit. No lymph node enlargement. CARDIOVASCULAR: S1, S2. RESPIRATORY: Breath sounds diminished in the bases. No rhonchi. No crackles. ABDOMEN: Soft, nontender. No mass palpable. LEGS: Status post surgery. NERVOUS SYSTEM: Higher functions as mentioned earlier. Moves all four limbs. No focal motor deficits. LYMPHATICS: No lymphadenopathy in the neck, axillae, groin. SKIN: No ulcer, rash or bleeding. LABS: WBC 6.2, hemoglobin 9.8, INR is 1.9. ASSESSMENT: 1. Status post left total knee arthroplasty. 2. Gait dysfunction. 3. Hypertension. 4. History of syncope. 5. History of gastroesophageal reflux disease. 6. History of constipation. RECOMMENDATION: I recommend to continue current management and symptomatic treatment. Medication reconciliation was done. Recommend close follow up with Dr. Reagan and Dr. Guillory in the ECF and follow up with Dr. Mcdaniels after discharge from the ECF. The medications recommended are as follows: 1. Ecotrin 81 mg daily. 2. Tenormin 50 mg p.o. daily. 3. Calcium carbonate 600 mg b.i.d. 4. Vitamin D 3000 daily. 5. Fiber 1 dose q.h.s. 6. [place] 150 mg daily. 7. Claritin 10 mg p.o. daily. 8. Multivitamins. 9. Vitamin B complex 1 daily. 10.Dulcolax p.r.n. 11.[place] 5 mg per Orthopedic Surgery. 12.Magnesium oxide p.r.n. 13.Senna b.i.d. 14.Senna p.r.n. 15.Coumadin 2.5 mg daily per Orthopedic Surgery. Monitor CBC, BMP, PT/INR in the ECF. MMODL / IJN: [id number] /
--- NOTE | 2018-01-24 16:39 | XR ---
Limited left knee HISTORY: Postop left knee arthroplasty 2 views of the left knee No comparisons Patient is status post left knee arthroplasty. There is anatomic alignment. Lucency present in the so ft tissues is compatible with postop state. IMPRESSION: Orthopedic follow-up.
[2018-01-24] MEDS ORDERED: WARFARIN 2.5 MG TAB PO ONE (18:00)
== END 2018-01-24 15:05 | DRG 470 ==
LOC: 2ORMAIN 10:51 → 3SUR 14:39
PROVIDERS: ADMIT Orthopaedic Surgery; ATTEND Orthopaedic Surgery
PROC: 0SRD0J9 Replacement of Left Knee Joint with Synthetic Substitute, Cemented, Open Approach (ICD-10-PCS; principal; 2018-01-20 12:30)
DX: M17.0 Bilateral primary osteoarthritis of knee (principal); I10 Essential (primary) hypertension; K21.9 Gastro-esophageal reflux disease without esophagitis; K59.00 Constipation, unspecified; M21.062 Valgus deformity, not elsewhere classified, left knee; M81.0 Age-related osteoporosis without current pathological fracture; R26.9 Unspecified abnormalities of gait and mobility; Z79.82 Long term (current) use of aspirin; Z79.899 Other long term (current) drug therapy; Z88.6 Allergy status to analgesic agent; Z87.891 Personal history of nicotine dependence; Z80.0 Family history of malignant neoplasm of digestive organs
CPT/HCPCS: 80048; 85025; 85610; 88300

== ENCOUNTER → 2018-03-03 | Outpatient (CLI) | payer MEDICARE, OTHER ==
--- NOTE | 2018-03-03 12:18 | US ---
EXAMINATION TYPE: US abdomen complete DATE OF EXAM: 03/03/2018 COMPARISON: NONE CLINICAL HISTORY: R10.13 EPIGASTRIC PAIN. EXAM MEASUREMENTS: Liver Length: 14.5 cm Gallbladder Wall: 0.2 cm CBD: 0.9 cm Spleen: 10.5 cm Right Kidney: 8.8 x 3.2 x 3.4 cm Left Kidney: 9.6 x 4.5 x 4.0 cm Pancreas: Obscured by bowel gas Liver: Heterogeneous, limited visualization due to overlying bowel gas Gallbladder: wnl Evidence for sonographic Aguero's sign: No CBD: Dilated Spleen: Granulomas visualized Right Kidney: Measuring small, no hydronephrosis, no cystic or solid area visualized Left Kidney: No hydronephrosis or masses seen Upper IVC: wnl Abd Aorta: wnl IMPRESSION: 1. Prominent common bile duct.
--- NOTE | 2018-03-03 12:46 | FL ---
EXAMINATION TYPE: FL UGI DATE OF EXAM: 03/03/2018 COMPARISON: None HISTORY: Epigastric pain, nausea TECHNIQUE: A double air contrast UGI study is performed. FINDINGS: Esophagus dilates to normal caliber has normal contour to the gastroesophageal junction. Ga stroesophageal junction opens to normal caliber. No intraluminal arterial defects are evident. Second letty tertiary contractions were evident. There appears to be complete stripping of the esophageal bolu s in the horizontal drinking position Fundus body and antrum the stomach are well visualized. No intraluminal or extramural defects are august dent. Barium readily empties into the normally positioned duodenal cap and sweep. Proximal jejunum vi sualized is unremarkable. Overhead radiographs were obtained which remain unremarkable. Images: 22 Fluoroscopy time: 1 minute 24 seconds IMPRESSIONS: 1. Normal upper GI.
== END | disposition home or self-care (01) ==
LOC: RADUSWWP 08:39
PROVIDERS: ATTEND Family Medicine
DX: R10.13 Epigastric pain (principal)
CPT/HCPCS: 74240; 76700

== ENCOUNTER → 2019-01-31 | Outpatient (CLI) | payer MEDICARE, OTHER ==
[2019-01-31 15:27] LABS: Appearance,Urine Clear (Clear); Bilirubin,Urine Negative (Negative); Blood,Urine Trace (Negative); Color,Urine Yellow; Glucose,Urine (UA) Negative (Negative); HCT 33.5 % (34.0-46.0); HGB 11.4 gm/dL (11.4-16.0); Hyaline Casts,Urine 15 /lpf (0-2); Ketones,Urine Negative (Negative); Leukocyte Esterase,Urine Moderate (Negative); MCH 31.9 pg (25.0-35.0); MCHC 33.9 g/dL (31.0-37.0); MCV 94.2 fL (80.0-100.0); Mean Platelet Volume 7.1; Mucus,Urine Few /hpf; Nitrite,Urine Negative (Negative); PH, Urine 5.5 (5.0-8.0); Platelet Count 160 k/uL (150-450); Protein,Urine Trace (Negative); RBC 3.56 m/uL (3.80-5.40); RBC,Urine 2 /hpf (0-5); RDW 13.1 % (11.5-15.5); Specific Gravity,Urine 1.024 (1.001-1.035); Squamous Epithelial Cell,Urine <1 /hpf (0-4); WBC 7.7 k/uL (3.8-10.6); WBC,Urine 4 /hpf (0-5)
[2019-01-31 15:28] LABS: Albumin 4.4 g/dL (3.5-5.0); Calcium 10.8 mg/dL (8.4-10.2); Potassium 4.8 mmol/L (3.5-5.1); Total Bilirubin 0.7 mg/dL (0.2-1.3); Total Protein 7.1 g/dL (6.3-8.2)
[2019-01-31 15:38] LABS: Prothrombin Time 10.5 sec (9.0-12.0)
== END | disposition home or self-care (01) ==
LOC: LABPAT 14:42
PROVIDERS: ATTEND Orthopaedic Surgery
DX: Z01.812 Encounter for preprocedural laboratory examination (principal); Z79.01 Long term (current) use of anticoagulants
CPT/HCPCS: 36415; 80053; 81001; 85027; 85610; 85730; 87070

== ENCOUNTER 2019-02-19 07:45 | Inpatient (IN) | payer MEDICARE, OTHER ==
[2019-02-15 12:10] VITALS: BMI 24.2
[~2019-02-19 07:45] MED LIST changes: +HYDROmorphone 0.5 MG/0.5 ML SYRINGE IVP PRN; -LACTATED RINGERS 1,000 ML IV SCH; +LIDOCAINE 1% 20 ML VIAL (10MG/ML) FOR IV START INTRADERMA PRN; +MELOXICAM 7.5 MG TAB PO ONE; -MIDAZOLAM 2 MG/2 ML VIAL IV PRN; +ROPIVACAINE 246.25 MG, EPINEPHrine 0.5 MG, KETOROLAC 30 MG, cloNIDine HCL/PF 80 MCG, WA... MISCELLANE ONE; +TRANEXAMIC ACID 1,000 MG in SODIUM CHLORIDE 0.9% 100 ML IVPB ONE; -TRANEXAMIC ACID 1,000 MG in SODIUM CHLORIDE 0.9% 50 ML IVPB ONE; -ceFAZolin IN SWFI 2 GM/20 ML SYRINGE IVP ONE; -fentaNYL (PF) 50 MCG/ML 2 ML AMP IV PRN
[2019-02-19] MEDS: LACTATED RINGERS 1,000 ML IV SCH ×4 (08:18→19:03)
[2019-02-19] MEDS ORDERED: fentaNYL (PF) 50 MCG/ML 2 ML AMP IV ONE (08:51)
[2019-02-19] MEDS ORDERED: MIDAZOLAM (PF) 2 MG/2 ML VIAL IV ONE (08:51)
[2019-02-19] MEDS ORDERED: ROPIVACAINE 0.2%-NS ON-Q PUMP 1,090 MG, EMPTY PAIN BALL 1 EACH MISCELLANE PRN (09:15)
--- NOTE | 2019-02-19 09:17 | P.ANPRN ---
Procedure Note - Anesthesia - Nerve Block Performed Right Adductor Canal Infusion Time Out Performed: Yes Date of Procedure: 02/19/19 Procedure Start Time: 08:50 Procedure Stop Time: 09:05 Location of Patient Procedure: PreOp Indication: Acute Post-Operative Pain Specifically requested for management of pain by DrKaylee: Kishore Lacy Sedation Type: Sedate with meaningful contact maintained Preparation: Sterile Prep Position: Supine Catheter Depth at Skin (cm): 8 Catheter: Indwelling Needle Types: Pajunk Needle Gauge: 18 Ultrasound used to visualize needle placement: Yes Ultrasound used to observe medication spread: Yes Injectate: 0.5% Ropivacaine (see comment for volume) (20cc) Blood Aspirated: No Pain Paresthesia on Injection Noted: No Resistance on Injection: Normal Image Stored and Saved: Yes Events: Uneventful and Well Tolerated
[2019-02-19] MEDS ORDERED: PROPOFOL 10 MG/ML 20 ML VIAL IV ONE (09:41)
[2019-02-19] MEDS ORDERED: fentaNYL (PF) 50 MCG/ML 2 ML AMP ONE (09:41)
[2019-02-19] MEDS ORDERED: MIDAZOLAM 2 MG/2 ML VIAL ONE (09:41)
[2019-02-19] MEDS ORDERED: TRANEXAMIC ACID 1,000 MG/10 ML VIAL ONE (09:41)
[2019-02-19] MEDS ORDERED: SODIUM CHLORIDE 0.9% 100 ML BAG ONE (09:41)
[2019-02-19] MEDS ORDERED: ceFAZolin 3,000 MG in SODIUM CHLORIDE 0.9% IRRIGATIO 3,000 ML IRRIGATION ONE (09:46)
--- NOTE | 2019-02-19 11:10 | P.OP ---
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 ANESTHESIA: Spinal ESTIMATED BLOOD LOSS: 100 ml. DRILLING FOREMAN: Taty White PA-C (assistance with: patient positioning, retraction, exposure, hemostasis, leg positioning, implantation, irrigation, closure, dressing) COMPLICATIONS: None apparent. COMPONENTS IMPLANTED: Journey II BCS total knee system from [employer] and Nephew, Elisha INDICATIONS: Mrs. De La Torre is an 88 year old female with a history of right knee osteoarthritis and severe genu valgum. The patient's knee is end-stage, and conservative management has failed. The operation of knee replacement has been discussed at length in the office, as well as potential risks and com plications. These are inclusive of, but not limited to: bleeding, infection, scarring, discomfort, blood vessel and nerve damage, need for further surgery, failure to relieve symptoms, persistence, recurrence, or worsening of problems, loosening, dislocation, wear, blood clot, pulmonary embolism, , gait dysfunction, stiffness, and other risks as discussed in the office. The patient elects to proceed and the consent form has been signed. PROCEDURE: The patient was taken to the operating room and positioned on the operating room table in the supine position. Anesthesia was initiated. Care was taken to make sure that all pressure points were adequately padded. The right operative lower extremity was prepped and draped in the usual aseptic fashion using ChloraPrep. Ioban drape was used for the case and the patient received intravenous antibiotics within one hour of the incision. A pneumotourniquet and leg butts were used for the case. The limb was exsanguinated with an Esmarch bandage and the tourniquet was inflated to 350 mmHg. Time-out was called confirming the patient's identity, side, procedure and administration of antibiotics and tranexamic acid. The incision was then created midline directly over the left knee, carried down through skin and into the subcutaneous tissues and down to fascia. Full thickness subcutaneous medial flap was developed. Medial parapatellar arthrotomy was performed and the interior of the knee was inspected. There was end-stage osteoarthritis of the knee with a mild to moderate genu varum type deformity. The fat pad was excised and proximal medial release on the tibia was completed using meticulous dissection and a curved osteotome. On the lateral side, a similar proximal release was performed off the tibia of the lateral capsule using a sharp osteotome. The anterior cruciate ligament was taken down. Note was made of significant attrition of the anterior and significant degenerative appearance of the cruciate ligaments. The exposure was excellent. The knee was flexed 90 degrees and the patella was everted. The [employer] pre- made distal cutting block was attached and pinned into position. The planned cut was analyzed visually and found to be satisfactory without the need for any adjustment. The oscillating saw was then used to make the distal femoral cut. This cut was confirmed to be flat with the flat end of an osteotome. The retractors were placed around the tibia and the tibial surface was addressed. The [employer] pre-made guide was placed onto the exposed tibial surface and pinned into position to carmela the rotational alignment. The alignment of the guide was checked for depth of plannned resection, slope, and varus valgus. Guide was confirmed to be in good position and the tibial cut was then created with protection of the posterior neurovascular structures and the collateral ligaments. The tibial cut surface was removed and sized. Femoral sizing was then accomplished using posterior referencing. Care was taken to analyze the posterior condyles for signs of deficiency or severe wear, and adjustments to the guide were made, as appropriate. 3 degree external rotation pins were placed relative to Fawad's line. The cutting jig for the femur was applied to these pins. The planned cuts were further analyzed prior to performing them with the oscillating saw. No femoral notching was produced. Bone fragments were removed and the cut surfaces were finished, as necessary, with a reciprocating saw. Spacer block technique was then used to confirm that the flexion and extension gaps were equal. Soft tissue releases and adjustment of the tibial and/or femoral cuts were made, as necessary, until the gaps were equal. This included release of the posterior cruciate ligament, which was excessively tight in this patient. The femur was then further finished for a posterior cruciate ligament substituting component. Patellar resurfacing was performed using a reamer. The size of the required patellar component was estimated and the patellar surface was then reamed down to a residual thickness which would recreate the [place] thickness with the component. The exact placement of the patellar component was adjusted for position based on preoperative x-rays and intraoperative findings. Prior to placing trial components, anesthetic solution consisting of ropivicaine with epinephrine, ketorolac, and clonidine was injected carefully and methodically in a grid pattern using aspiration technique into the soft tissue around the knee circumferentially, starting with the deeper tissues first and progressing to fascia, and then finally the skin/subcutaneous tissue. Particular care was taken when injecting the posterior capsule. The trial components were inserted. The tibial tray was allowed to self center and the patella was noted to track very well. The position of the tibial component was marked and noted to be nearly exactly aligned with the pre-drilled holes from the [employer] guide. The tibia was then finished for a stemmed tibial component. Cement was mixed on the back table and applied to the final components. Trial components were removed and the cut surfaces of the bone were pulse lavaged thoroughly and dried. Cement was then applied to the tibial surface and pressurized into the surface using finger pressurization technique. The tibial component was then applied and excess cement was removed after it was impacted securely and noted to be flush with the cut surface. In similar fashion, the cement was applied to the cut femoral surface, pres surized in using finger pressurization and the component was impacted into place. Excess cement was removed. The polyethylene spacer was then implanted and locked into position. The patellar component was then applied in similar technique and a patellar clamp was used to hold the patella in place as the cement hardened. Once the cement had fully hardened, the knee was reinspected. Any other cement extrusion was removed and final kinematic testing showed range of motion from 0 to 130 degrees with excellent stability, both medially and laterally and appropriate alignment of the leg. Patellar tracking was excellent. The knee was then thoroughly pulse lavaged with normal saline. The tourniquet was deflated and hemostasis was obtained with electrocautery and IV tranexamic acid, 1 g given at the start of the operation and 1 g at the start of closure. Closure was with #2 Ethibond in the fascia/capsule and supplemented with #2 Quill, 2-0 Vicryl suture was used for the subcutaneous tissues and 3-0 Quill for the skin. Dermabond/Steri-Strips were then applied. A lightly compressive dressing was applied using Webril and an Sharad wrap. The patient was then transferred to stretcher and taken to the recovery room in stable condition. Sponge and needle counts were correct.
[2019-02-19] MEDS ORDERED: NA PHOS,M-B/NA PHOS,DI-BA 133 ML ENEMA RECTAL PRN (11:43)
[2019-02-19] MEDS ORDERED: NALOXONE 0.4 MG/ML 1 ML VIAL IV PRN (11:43)
[2019-02-19] MEDS ORDERED: HYDROcodone/APAP 5-325MG 1 EACH TAB PO PRN ×2 (11:43)
[2019-02-19] MEDS ORDERED: HYDROmorphone 0.5 MG/0.5 ML SYRINGE IVP PRN ×3 (11:43)
[2019-02-19] MEDS ORDERED: ONDANSETRON 4 MG/2 ML VIAL IVP PRN (11:43)
[2019-02-19] MEDS ORDERED: BISACODYL 10 MG SUPP RECTAL PRN (11:43)
[2019-02-19] MEDS ORDERED: MAGNESIUM HYDROXIDE 2,400 MG/10 ML CUP PO PRN (11:43)
--- NOTE | 2019-02-19 12:17 | XR ---
EXAMINATION TYPE: XR knee limited RT DATE OF EXAM: 02/19/2019 CLINICAL HISTORY: Right knee pain and arthritis status post total knee replacement. TECHNIQUE: Portable AP and crosstable lateral views of the right knee are obtained immediately posto peratively. COMPARISON: None FINDINGS: Metallic hardware from total right knee arthroplasty is seen and appears satisfactory in a lignment and position. There is evidence of recent surgery with diffuse subcutaneous gas and soft ti ssue swelling noted. There is a well-circumscribed intramedullary lesion measuring approximately 4.4 cm with a narrow zone of transition however there is some cortical thickening seen laterally. This is mid diaphyseal within the tibia. IMPRESSION: 1. METALLIC HARDWARE FROM TOTAL RIGHT KNEE ARTHROPLASTY IS SATISFACTORY IN ALIGNMENT. 2. 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 Some cortical thickening is seen laterally. C orrelate with any prior outside radiographs to establish long-term stability. If this is a new findin g further characterization with enhanced MRI would be recommended to assess for a soft tissue compone nt.
[2019-02-19] MEDS: SENNOSIDES-DOCUSATE SODIUM 1 EACH TAB PO SCH (19:03)
[2019-02-19] MEDS ORDERED: hydrALAZINE HCL 10 MG TAB PO PRN (19:22)
[2019-02-20 06:31] LABS: Basophils % (A) 1 %; Eosinophils # (A) 0.1 k/uL (0-0.7); Eosinophils % (A) 1 %; HCT 27.3 % (34.0-46.0); Lymphocytes % (A) 14 %; MCH 32.4 pg (25.0-35.0); MCHC 35.6 g/dL (31.0-37.0); Mean Platelet Volume 6.2; Monocytes # (A) 0.3 k/uL (0-1.0); Monocytes % (A) 5 %; Neutrophils # (A) 5.5 k/uL (1.3-7.7); Neutrophils % (A) 78 %; Platelet Count 137 k/uL (150-450); RDW 12.9 % (11.5-15.5)
[2019-02-20 06:35] LABS: HGB 9.7 gm/dL (11.4-16.0)
[2019-02-20] MEDS: ATENOLOL 25 MG TAB PO SCH (08:20)
[2019-02-20] MEDS: CHOLECALCIFEROL 1,000 UNIT TAB PO SCH (08:20)
[2019-02-20] MEDS: ASPIRIN 325 MG TAB PO SCH (08:20)
[2019-02-20] MEDS: MELOXICAM 7.5 MG TAB PO SCH (08:20)
--- NOTE | 2019-02-20 10:05 | P.PN ---
Subjective Progress Note Date: 02/20/19 Principal diagnosis: Primary osteoarthritis right knee. Status post total right knee arthroplasty. This is an 88-year-old female who is status post total right knee arthroplasty on 02/19/2019. She is doing fairly well from an orthopedic standpoint. She has no new complaints or concerns today. She did have an episode of hypertension yesterday which is improved today. She states that she is having minimal pain this morning. Objective - Vital Signs Vital signs: Vital Signs Temp 100.8 F H 02/20/19 07:30 Pulse 79 02/20/19 07:30 Resp 15 02/20/19 07:30 BP 146/61 02/20/19 07:30 Pulse Ox 95 02/20/19 07:30 Intake & Output 02/19/19 02/20/19 02/20/19 18:59 06:59 18:59 Intake Total 1351 1940 200 Output Total 100 Balance 1251 1940 200 Intake: IV 1001 Intake, IV Titration 1000 Amount Lactated Ringers 1,000 ml 1000 @ 100 mls/hr IV .Q10H [facility] Rx#:[id number] Oral 350 940 200 Output: Estimated Blood Loss 100 Other: Voiding Method Bedside Commode Bedside Commode # Voids 1 2 2 - Exam This is a pleasant 80-year-old female in no acute distress. She is alert and oriented 3. Exam of the right lower extremity reveals that her dressing is clean, dry and intact. She has full foot and ankle motion bilaterally. No Pain with palpation. Homans sign is negative. Neurovascular status to the lower extremity is intact. - Labs CBC & Chem 7: 02/20/19 05:55 Labs: Abnormal Lab Results - Last 24 Hours (Table) 02/20/19 Range/Units 05:55 RBC 3.00 L (3.80-5.40) m/uL Hgb 9.7 L D (11.4-16.0) gm/dL Hct 27.3 L (34.0-46.0) % Plt Count 137 L (150-450) k/uL Assessment and Plan (1) Osteoarthritis of right knee Current Visit: Yes Status: Acute Code(s): M17.11 - UNILATERAL PRIMARY OSTEOARTHRITIS, RIGHT KNEE SNOMED Code(s): 020132728904762 (2) Status post total right knee replacement Current Visit: Yes Status: Acute Code(s): Z96.651 - PRESENCE OF RIGHT ARTIFICIAL KNEE JOINT SNOMED Code(s): 9704088839025 (3) Hypertension Current Visit: Yes Status: Acute Code(s): I10 - ESSENTIAL (PRIMARY) HYPERTENSION SNOMED Code(s): 90348322 Plan: The clinical findings are discussed with the patient. We will continue current care. Continue physical therapy. Plan discharged to home versus rehab tomorrow.
[2019-02-20] MEDS ORDERED: hydrALAZINE HCL 50 MG TAB PO PRN (11:15)
--- NOTE | 2019-02-20 11:36 | P.PN ---
Progress Note - Text 02/20 630am 88-year-old female status post total knee replacement by Dr. Lacy. Patient has an On-Q pump for postop pain control, was seen this morning and evaluated, patient has a VAS of 2 with the solution running at 8 mL an hour. Plan continue On-Q pump infusion
--- NOTE | 2019-02-20 11:40 | P.CONS ---
History of Present Illness - Reason for Consult hypertension uncontrolled blood pressure - History of Present Illness patient is pleasant 88-year-old female was admitted for elective right knee are 2+ is excessively and underwent surgery.. Patient is having low-grade fever today of becausepatient that is covered up in sheets since she had a surgery yesterday a workup for Any sepsis clinically patient denied any cough denied any dysuria increased urinary frequency. We will obtain UA with urine culture him a chest x-ray to rule out pneumonia and blood culture. No and medics will be started. I recommend to avoid opiate and ALLERGIES see a as patient Cannot tolerate these medications. Patient is already on meloxicam which she can continue.patient related GI prophylaxis. Review of Systems REVIEW OF SYSTEMS: CONSTITUTIONAL: No fever, no malaise, no fatigue. HEENT: No recent visual problems or hearing problems. Denied any sore throat. CARDIOVASCULAR: No chest pain, orthopnea, PND, no palpitations, no syncope. PULMONARY: No shortness of breath, no cough, no hemoptysis. GASTROINTESTINAL: No diarrhea, no nausea, no vomiting, no abdominal pain. NEUROLOGICAL: No headaches, no weakness, no numbness. HEMATOLOGICAL: Denies any bleeding or petechiae. GENITOURINARY: Denies any burning micturition, frequency, or urgency. MUSCULOSKELETAL/RHEUMATOLOGICAL: Denies any joint pain, swelling, or any muscle pain. ENDOCRINE: Denies any polyuria or polydipsia. The rest of the 14-point review of systems is negative. Past Medical History Past Medical History: GERD/Reflux, Hypertension, Osteoarthritis (OA), Syncope Additional Past Medical History / Comment(s): OSTEOPOROSIS, occasional ankle edema History of Any Multi-Drug Resistant Organisms: None Reported Past Surgical History: Joint Replacement Additional Past Surgical History / Comment(s): OVARIES REMOVED (S). JUHI CATARACTS REMOVED. COLONOSCOPY, left knee replaced Past Anesthesia/Blood Transfusion Reactions: No Reported Reaction Past Psychological History: No Psychological Hx Reported Smoking Status: Former smoker Past Alcohol Use History: None Reported Past Drug Use History: None Reported - Past Family History Father Family Medical History: Cancer Additional Family Medical History / Comment(s): STOMACH CANCER Medications and Allergies Home Medications Medication Instructions Recorded Confirmed Type Aspirin [Adult Low Dose Aspirin EC] 81 mg PO DAILY 01/27/16 02/15/19 History Atenolol [Tenormin] 25 mg PO DAILY 01/27/16 02/15/19 History Cholecalciferol [Vitamin D3 (25 1,000 unit PO DAILY 01/13/18 02/15/19 History Mcg = 1000 Iu)] Meloxicam [Mobic] 15 mg PO DAILY 02/15/19 02/15/19 History traMADol HCL [Ultram] 50 mg PO Q6HR PRN 02/15/19 02/15/19 History Sennosides-Docusate Sodium 1 tab PO BID #60 tablet 02/19/19 Rx [Senokot-S] Aspirin EC [Ecotrin] 325 mg PO DAILY #30 tablet. 02/20/19 Rx HYDROcodone/APAP 5-325MG [[place] 1 - 2 each PO Q4-6H PRN #50 tab 02/20/19 Rx 5-325] Allergies Allergy/AdvReac Type Severity Reaction Status Date / Time ibuprofen [From Motrin] AdvReac Abdominal Verified 02/19/19 08:02 Pain rofecoxib [From Vioxx] AdvReac Abdominal Verified 02/19/19 08:02 Pain UNCOATED ASPIRIN AdvReac Unknown STOMACH Uncoded 02/19/19 08:02 PAIN Physical Exam Vitals: Vital Signs Temp Pulse Pulse Pulse Resp BP BP 02/20/19 10:24 99.6 F 02/20/19 07:30 100.8 F H 79 15 02/20/19 07:00 70 16 02/19/19 23:00 99.4 F 70 165/88 02/19/19 19:20 97.9 F 60 138/61 02/19/19 16:50 54 L 16 02/19/19 15:45 54 L 172/67 02/19/19 15:05 46 L 154/69 02/19/19 14:50 49 L 151/68 02/19/19 14:20 49 L 174/68 02/19/19 14:05 56 L 164/71 02/19/19 13:50 64 161/74 02/19/19 13:40 52 L 233/186 02/19/19 13:25 56 L 169/64 02/19/19 13:05 54 L 174/69 02/19/19 12:30 59 L 16 02/19/19 12:15 59 L 16 02/19/19 12:00 52 L 16 02/19/19 11:45 52 L 16 141/79 02/19/19 11:38 98.2 F 85 12 BP Pulse Ox 02/20/19 10:24 02/20/19 07:30 146/61 95 02/20/19 07:00 02/19/19 23:00 96 02/19/19 19:20 97 02/19/19 16:50 02/19/19 15:45 99 02/19/19 15:05 98 02/19/19 14:50 93 L 02/19/19 14:20 99 02/19/19 14:05 95 02/19/19 13:50 94 L 02/19/19 13:40 81 L 02/19/19 13:25 98 02/19/19 13:05 99 02/19/19 12:30 135/65 100 02/19/19 12:15 133/65 100 02/19/19 12:00 138/74 98 02/19/19 11:45 97 02/19/19 11:38 140/59 97 Intake and Output 02/19/19 02/20/19 02/20/19 22:59 06:59 14:59 Intake Total 700 1240 200 Balance 700 1240 200 Intake: Intake, IV Titration 1000 Amount Lactated Ringers 1,000 ml 1000 @ 100 mls/hr IV .Q10H [facility] Rx#:[id number] Oral 700 240 200 Other: Voiding Method Bedside Commode Bedside Commode # Voids 1 2 2 PHYSICAL EXAMINATION: GENERAL: The patient is alert and oriented x3, not in any acute distress. Well developed, well nourished. HEENT: Pupils are round and equally reacting to light. EOMI. No scleral icterus. No conjunctival pallor. Normocephalic, atraumatic. No pharyngeal erythema. No thyromegaly. CARDIOVASCULAR: S1 and S2 present. No murmurs, rubs, or gallops. PULMONARY: Chest is clear to auscultation, no wheezing or crackles. ABDOMEN: Soft, nontender, nondistended, normoactive bowel sounds. No palpable organomegaly. MUSCULOSKELETAL:post surgically packed right knee, deferred to orthopedic surgery EXTREMITIES: No cyanosis, clubbing, or pedal edema. NEUROLOGICAL: Gross neurological examination did not reveal any focal deficits. SKIN: No rashes. Results CBC & Chem 7: 02/20/19 05:55 Labs: Abnormal Lab Results - Last 24 Hours (Table) 02/20/19 Range/Units 05:55 RBC 3.00 L (3.80-5.40) m/uL Hgb 9.7 L D (11.4-16.0) gm/dL Hct 27.3 L (34.0-46.0) % Plt Count 137 L (150-450) k/uL Assessment and Plan Plan: - fever postoperatively: Low-grade fevers no signs or symptoms of infection septic workup as mentioned above.recommend is in the spirometry. -Status post right knee arthroplasty. Avoid opiate analgesia, patient is in aspirin for DVT prophylaxis. 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 -osteoarthritis
[2019-02-20] MEDS: ACETAMINOPHEN TAB 325 MG TAB PO PRN (12:07)
--- NOTE | 2019-02-20 12:18 | XR ---
EXAMINATION TYPE: XR chest 2V DATE OF EXAM: 02/20/2019 COMPARISON: NONE TECHNIQUE: PA and lateral views submitted. HISTORY: Fever FINDINGS: The lungs are clear and there is no pneumothorax, pleural effusion, or focal pneumonia. Heart is en larged. Arthropathy shoulders diffuse osteopenia. Atherosclerotic change aorta. Degenerative change of the sp ine. IMPRESSION: 1. No acute process.
[2019-02-20] MEDS: LACTATED RINGERS 1,000 ML IV SCH (19:09)
[2019-02-20] MEDS: SENNOSIDES-DOCUSATE SODIUM 1 EACH TAB PO SCH (20:37)
[2019-02-20] MEDS: FAMOTIDINE 20 MG TAB PO SCH (20:37)
[2019-02-21] MEDS: LACTATED RINGERS 1,000 ML IV SCH ×3 (02:32→19:22)
[2019-02-21 06:27] LABS: Appearance,Urine Clear (Clear); Bacteria,Urine Rare /hpf; Bilirubin,Urine Negative (Negative); Blood,Urine Trace (Negative); Color,Urine Light Yellow; Glucose,Urine (UA) Negative (Negative); Ketones,Urine Trace (Negative); Leukocyte Esterase,Urine Negative (Negative); Mucus,Urine Rare /hpf; Nitrite,Urine Negative (Negative); Protein,Urine Negative (Negative); RBC,Urine 1 /hpf (0-5); Specific Gravity,Urine 1.011 (1.001-1.035); Squamous Epithelial Cell,Urine <1 /hpf (0-4); Urobilinogen,Urine <2.0 mg/dL (<2.0)
[2019-02-21] MEDS: ASPIRIN 325 MG TAB PO SCH (07:53)
[2019-02-21] MEDS: MELOXICAM 7.5 MG TAB PO SCH (07:53)
[2019-02-21] MEDS: FAMOTIDINE 20 MG TAB PO SCH ×2 (07:53→21:08)
[2019-02-21] MEDS: ACETAMINOPHEN TAB 325 MG TAB PO PRN ×2 (07:53→21:07)
[2019-02-21] MEDS: ATENOLOL 25 MG TAB PO SCH (07:53)
[2019-02-21] MEDS: CHOLECALCIFEROL 1,000 UNIT TAB PO SCH (07:53)
--- NOTE | 2019-02-21 08:30 | P.PN ---
Subjective Progress Note Date: 02/21/19 Principal diagnosis: Primary osteoarthritis right knee. Status post total right knee arthroplasty. This is an 88-year-old female who is status post total right knee arthroplasty on 02/19/2019. She has a low-grade temp of 100.4 today. She also states that she feels nauseous and is having a little more pain today. Her blood pressure is stabilized. Vital signs are stable. Objective - Vital Signs Vital signs: Vital Signs Temp 100.4 F H 02/21/19 07:00 Pulse 78 02/21/19 07:00 Resp 14 02/21/19 07:00 BP 163/63 02/21/19 07:00 Pulse Ox 97 02/21/19 07:00 Intake & Output 02/20/19 02/21/19 02/21/19 18:59 06:59 18:59 Intake Total 550 600 Output Total 500 Balance 550 100 Intake: Intake, IV Titration 100 Amount Lactated Ringers 1,000 ml 100 @ 20 mls/hr IV .Q24H [facility] Rx#:[id number] Oral 450 600 Output: Urine 500 Other: Voiding Method Bedside Commode # Voids 3 1 # Bowel Movements 1 - Exam This is a pleasant 80-year-old female in no acute distress. She is alert and oriented 3. Exam of the right lower extremity reveals that her incision looks good. There is no erythema or ecchymosis. Dermabond tape is intact. Mild to moderate swelling to the knee. She has full foot and ankle motion bilaterally. No Pain with palpation. Homans sign is negative. Neurovascular status to the lower extremity is intact. - Labs CBC & Chem 7: 02/20/19 05:55 Labs: Abnormal Lab Results - Last 24 Hours (Table) 02/21/19 Range/Units 05:33 Urine Ketones Trace H (Negative) Urine Blood Trace H (Negative) Urine Bacteria Rare H (None) /hpf Urine Mucus Rare H (None) /hpf Assessment and Plan (1) Osteoarthritis of right knee Current Visit: Yes Status: Acute Code(s): M17.11 - UNILATERAL PRIMARY OSTEOARTHRITIS, RIGHT KNEE SNOMED Code(s): 154887175350231 (2) Status post total right knee replacement Current Visit: Yes Status: Acute Code(s): Z96.651 - PRESENCE OF RIGHT ARTIFICIAL KNEE JOINT SNOMED Code(s): 1198618646982 (3) Hypertension Current Visit: Yes Status: Acute Code(s): I10 - ESSENTIAL (PRIMARY) HYPERTENSION SNOMED Code(s): 09653662 Plan: The clinical findings are discussed with the patient. We will continue current care. Continue physical therapy. The patient states that she will not be going to her daughter's house. She would like to go to inpatient rehab at discharge. We will plan discharged to [facility] tomorrow if cleared medically.
--- NOTE | 2019-02-21 13:58 | P.PN ---
Subjective Progress Note Date: 02/21/19 Principal diagnosis: patient is pleasant 88-year-old female was admitted for elective right knee are 2+ is excessively and underwent surgery. Patient is having low-grade fever toda y because patient that is covered up in sheets since she had a surgery yesterday. a workup for any sepsis clinically patient denied any cough denied any dysuria increased urinary frequency. We will obtain UA with urine culture him a chest x-ray to rule out pneumonia and blood culture. No antibiotics will be started. I recommend to avoid opiate analgesics as patient cannot tolerate these medications. Patient is already on meloxicam which she can continued. patient related GI prophylaxis. 02/21/2019 Patient sitting up at the site of the bed in no acute distress with family visiting. Dressing of the right knee is dry and intact along with knee-high NAREN hose. Patient states that she has been feeling somewhat lethargic and not well this morning and has noticed that she has had off-and-on fever status post surgery. Urinalysis was done yesterday which was unremarkable. Infectious dise ase is consulted and pending at this time. Patient denies any shortness of breath, chest pain, or palpitations at this time. Patient denies any nausea or vomiting and has been tolerating diet. Patient states that she has been getting up and working with physical therapy. Discussed with the Ortho [employer] about a possible diaphyseal lesion noted on x-ray and order was aware and has been following for 3-4 years no changes. Will continue to follow along closely. Objective - Vital Signs Vital signs: Vital Signs Temp 100.4 F H 02/21/19 07:00 Pulse 78 02/21/19 08:00 Resp 14 02/21/19 08:00 BP 163/63 02/21/19 07:00 Pulse Ox 97 02/21/19 07:00 Intake & Output 02/20/19 02/21/19 02/21/19 18:59 06:59 18:59 Intake Total 550 600 Output Total 500 Balance 550 100 Intake: Intake, IV Titration 100 Amount Lactated Ringers 1,000 ml 100 @ 20 mls/hr IV .Q24H [facility] Rx#:[id number] Oral 450 600 Output: Urine 500 Other: Voiding Method Bedside Commode Toilet # Voids 3 1 # Bowel Movements 1 - Exam GENERAL: The patient is alert and oriented x3, not in any acute distress. Well developed, well nourished. HEENT: Pupils are round and equally reacting to light. EOMI. No scleral icterus. No conjunctival pallor. Normocephalic, atraumatic. No pharyngeal erythema. No thyromegaly. CARDIOVASCULAR: S1 and S2 present. No murmurs, rubs, or gallops. PULMONARY: Chest is clear to auscultation, no wheezing or crackles. ABDOMEN: Soft, nontender, nondistended, normoactive bowel sounds. No palpable organomegaly. MUSCULOSKELETAL:post surgically packed right knee, deferred to orthopedic surgery EXTREMITIES: No cyanosis, clubbing, or pedal edema. Mild swelling noted of the right lower extremity. NAREN lopez noted NEUROLOGICAL: Gross neurological examination did not reveal any focal deficits. SKIN: No rashes. Dressing of the right knee is dry and intact. - Labs CBC & Chem 7: 02/20/19 05:55 Labs: Abnormal Lab Results - Last 24 Hours (Table) 02/21/19 Range/Units 05:33 Urine Ketones Trace H (Negative) Urine Blood Trace H (Negative) Urine Bacteria Rare H (None) /hpf Urine Mucus Rare H (None) /hpf Assessment and Plan Assessment: - fever postoperatively: Low-grade fevers no signs or symptoms of infection septic workup as mentioned above.recommend incentive spirometry. Infectious disease consulted for continued low-grade fevers. Will await report. -Status post right knee arthroplasty. Avoid opiate analgesia, patient is on aspirin for DVT prophylaxis. 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 Orthopedic surgery is well aware and have been following for quite some time. -osteoarthritis
[2019-02-21] MEDS: SENNOSIDES-DOCUSATE SODIUM 1 EACH TAB PO SCH (21:07)
--- NOTE | 2019-02-22 00:08 | P.CONS ---
History of Present Illness - Reason for Consult Consult date: 02/21/19 Fever Requesting physician: Paula Griffiths - Chief Complaint Right knee pain - History of Present Illness Patient is 88-year-old female who was electively admitted to the hospital on February 19, 2019 for right knee replacement this patient who did have evidence of advanced osteoarthritis patient denies any history of any fever or chills. Presented to hospital patient did complain of some allergy symptoms so did have some runny nose and postnasal drip but no other URI symptoms no headache no chest pain no shortness of breath no cough no abdominal pain no diarrhea and no urinary symptoms patient who was afebrile on February 19 did have a low-grade fever 100.8 on February 20, 2019 the morning at 730 and subsequently he did have a fever of 100.4 this morning that prompted this infectious disease consultation and so far the patient did have a UA completed which has been negative her white count was normal as of yesterday had not repeated today she also have a chest x- ray that was reported negative for any pneumonia because of her persistent fever infectious disease has been consulted for further recommendation patient currently denies having any worsening pain to the right knee area which apparently has improved compared to yesterday requiring less pain medication patient has slight nausea this morning but no vomiting and denies having abdominal pain and no diarrhea. Review of Systems CONSTITUTIONAL: Positive for weakness. Fever EYES: No complaint. ENT: as per history of present illness. RESPIRATORY: No complaint. CARDIOVASCULAR: No complaint. GENITOURINARY: No complaint. GASTROINTESTINAL: as per history of present illness. MUSCULOSKELETAL: as per history of present illness. INTEGUMENTARY: No complaint. PSYCHOLOGICAL: No complaint. ENDOCRINE: No complaint. NEUROLOGIC: No complaint. Past Medical History Past Medical History: GERD/Reflux, Hypertension, Osteoarthritis (OA), Syncope Additional Past Medical History / Comment(s): OSTEOPOROSIS, occasional ankle edema History of Any Multi-Drug Resistant Organisms: None Reported Past Surgical History: Joint Replacement Additional Past Surgical History / Comment(s): OVARIES REMOVED (S). JUHI CATARACTS REMOVED. COLONOSCOPY, left knee replaced Past Anesthesia/Blood Transfusion Reactions: No Reported Reaction Past Psychological History: No Psychological Hx Reported Smoking Status: Former smoker Past Alcohol Use History: None Reported Past Drug Use History: None Reported - Past Family History Father Family Medical History: Cancer Additional Family Medical History / Comment(s): STOMACH CANCER Medications and Allergies Home Medications Medication Instructions Recorded Confirmed Type Aspirin [Adult Low Dose Aspirin EC] 81 mg PO DAILY 01/27/16 02/15/19 History Atenolol [Tenormin] 25 mg PO DAILY 01/27/16 02/15/19 History Cholecalciferol [Vitamin D3 (25 1,000 unit PO DAILY 01/13/18 02/15/19 History Mcg = 1000 Iu)] Meloxicam [Mobic] 15 mg PO DAILY 02/15/19 02/15/19 History traMADol HCL [Ultram] 50 mg PO Q6HR PRN 02/15/19 02/15/19 History Sennosides-Docusate Sodium 1 tab PO BID #60 tablet 02/19/19 Rx [Senokot-S] Aspirin EC [Ecotrin] 325 mg PO DAILY #30 tablet. 02/20/19 Rx HYDROcodone/APAP 5-325MG [[place] 1 - 2 each PO Q4-6H PRN #50 tab 02/20/19 Rx 5-325] Allergies Allergy/AdvReac Type Severity Reaction Status Date / Time ibuprofen [From Motrin] AdvReac Abdominal Verified 02/19/19 08:02 Pain rofecoxib [From Vioxx] AdvReac Abdominal Verified 02/19/19 08:02 Pain UNCOATED ASPIRIN AdvReac Unknown STOMACH Uncoded 02/19/19 08:02 PAIN Physical Exam Vitals: Vital Signs Temp Pulse Pulse Resp BP Pulse Ox 02/21/19 08:00 78 14 02/21/19 07:00 100.4 F H 78 14 163/63 97 02/21/19 00:58 99.0 F 77 14 138/68 97 02/20/19 19:08 98.6 F 79 18 155/66 100 02/20/19 16:00 70 15 Intake and Output 02/20/19 02/21/19 02/21/19 22:59 06:59 14:59 Intake Total 400 200 Output Total 500 Balance 400 -300 Intake: Oral 400 200 Output: Urine 500 Other: Voiding Method Bedside Commode Toilet # Voids 1 1 # Bowel Movements 1 GENERAL DESCRIPTION: Elderly female lying in bed, no distress. No tachypnea or accessory muscle of respiration use. HEENT: Shows Pallor , no scleral icterus. Oral mucous membrane is dry. No pharyngeal erythema or thrush NECK: Trachea central, no thyromegaly. LUNGS: Unlabored breathing. Clear to auscultation anteriorly. No wheeze or crackle. HEART: S1, S2, regular rate and rhythm. No loud murmur ABDOMEN: Soft, no tenderness , guarding or rigidity, no organomegaly EXTREMITIES: No edema of feet. SKIN: No rash, no masses palpable. NEUROLOGICAL: The patient is awake, alert, oriented x3, mood and affect normal. Results CBC & Chem 7: 02/20/19 05:55 Labs: Abnormal Lab Results - Last 24 Hours (Table) 02/21/19 Range/Units 05:33 Urine Ketones Trace H (Negative) Urine Blood Trace H (Negative) Urine Bacteria Rare H (None) /hpf Urine Mucus Rare H (None) /hpf Assessment and Plan Assessment: 1-patient with low-grade fever in this patient who is status post right knee arthroplasty for advanced osteoarthritis currently no obvious clinical focus of infection in this patient who has only mild upper airway symptoms chest x-ray has been negative UA is negative and no evidence of any cellulitis or any problem at the IV sites Plan: 1-we will check influenza A and B PCR 2-patient has been advised on incentive spirometry 3-we will check a procalcitonin level in the a.m. and repeat his CBC 4-hold on any systemic antibiotic therapy at this point We will follow on clinical condition and cultures to further adjust medication if needed Thank you for this consultation will follow this patient along with you Time with Patient: Greater than 30
[2019-02-22] MEDS: LACTATED RINGERS 1,000 ML IV SCH ×2 (05:22→05:23)
[2019-02-22] MEDS: ASPIRIN 325 MG TAB PO SCH (07:54)
[2019-02-22] MEDS: FAMOTIDINE 20 MG TAB PO SCH (07:54)
[2019-02-22] MEDS: ATENOLOL 25 MG TAB PO SCH (07:54)
[2019-02-22] MEDS: MELOXICAM 7.5 MG TAB PO SCH (07:54)
[2019-02-22] MEDS: CHOLECALCIFEROL 1,000 UNIT TAB PO SCH (07:54)
--- NOTE | 2019-02-22 08:22 | P.DS ---
Providers Date of admission: 02/20/19 17:38 Expected date of discharge: 02/22/19 Attending physician: Kishore Lacy Consults: 02/19/19 14:45 Consult Physician Routine Consulting Provider: Paula Griffiths Consult Reason/Comments: Medical management Do you want consulting provider notified?: Yes 02/21/19 09:31 Consult Physician Stat Consulting Provider: Igor Newman Consult Reason/Comments: fever Do you want consulting provider notified?: Yes Primary care physician: Francine Mcdaniels - Discharge Diagnosis(es) (1) Osteoarthritis of right knee Current Visit: Yes Status: Acute (2) Status post total right knee replacement Current Visit: Yes Status: Acute (3) Hypertension Current Visit: Yes Status: Acute Hospital Course: This is a 88-year-old female who was last seen with complaint of continued right knee pain. The patient has a known history of degenerative arthritis of the right knee and presents to discuss surgical options. After discussion and consideration the patient elects to proceed with total right knee arthroplasty. The patient is seen preoperatively by her primary care physician and cleared for surgery. The patient is admitted to [facility] for total right knee arthroplasty. The procedures performed without complication or sequelae. Patient is doing well postoperatively. She did develop a slight temp on postop day 2 which is resolved. Vital signs are stable at discharge. Labs are stable at discharge. the patient is ambulating well with walker with minimal assistance. The patient is discharged to inpatient rehab on postop day #3 pending medical clearance. Please see orders and refer to the [facility] and the [facility] rec for accurate list of medications. Plan - Discharge Summary Discharge Rx Participant: No New Discharge Prescriptions: New Sennosides-Docusate Sodium [Senokot-S] 1 tab PO BID #60 tablet Aspirin EC [Ecotrin] 325 mg PO DAILY #30 tablet. HYDROcodone/APAP 5-325MG [Sorrento 5-325] 1 - 2 each PO Q4-6H PRN #50 tab PRN Reason: Pain No Action Atenolol [Tenormin] 25 mg PO DAILY Aspirin [Adult Low Dose Aspirin EC] 81 mg PO DAILY Cholecalciferol [Vitamin D3 (25 Mcg = 1000 Iu)] 1,000 unit PO DAILY Meloxicam [Mobic] 15 mg PO DAILY traMADol HCL [Ultram] 50 mg PO Q6HR PRN PRN Reason: Pain Discharge Medication List Aspirin [Adult Low Dose Aspirin EC] 81 mg PO DAILY 01/27/16 [History] Atenolol [Tenormin] 25 mg PO DAILY 01/27/16 [History] Cholecalciferol [Vitamin D3 (25 Mcg = 1000 Iu)] 1,000 unit PO DAILY 01/13/18 [History] Meloxicam [Mobic] 15 mg PO DAILY 02/15/19 [History] traMADol HCL [Ultram] 50 mg PO Q6HR PRN 02/15/19 [History] Sennosides-Docusate Sodium [Senokot-S] 1 tab PO BID #60 tablet 02/19/19 [Rx] Aspirin EC [Ecotrin] 325 mg PO DAILY #30 tablet. 02/20/19 [Rx] HYDROcodone/APAP 5-325MG [Sorrento 5-325] 1 - 2 each PO Q4-6H PRN #50 tab 02/20/19 [Rx] Follow up Appointment(s)/Referral(s): Taty White, AUREA [PHYSICIAN [employer]ER] - 03/08/19 3:00 pm Francine Mcdaniels DO [Primary Care Provider] - 1 Week Activity/Diet/Wound Care/Special Instructions: May bear wt as tolerated w walker. May shower if no drainage from incision 48h post op. Discharge Disposition: TRANSFER TO SNF/ECF
[2019-02-22 08:32] VITALS: BP 151/73; PULSE 79; RESP 17; TEMP 99.6
[2019-02-22 08:36] LABS: Basophils % (A) 1 %; Eosinophils # (A) 0.1 k/uL (0-0.7); Eosinophils % (A) 1 %; HGB 9.8 gm/dL (11.4-16.0); Lymphocytes # (A) 1.3 k/uL (1.0-4.8); Lymphocytes % (A) 18 %; MCH 31.3 pg (25.0-35.0); MCHC 32.6 g/dL (31.0-37.0); Monocytes # (A) 0.4 k/uL (0-1.0); Monocytes % (A) 5 %; Neutrophils # (A) 5.3 k/uL (1.3-7.7); Neutrophils % (A) 72 %; Platelet Count 145 k/uL (150-450); RBC 3.12 m/uL (3.80-5.40); RDW 13.1 % (11.5-15.5); WBC 7.3 k/uL (3.8-10.6)
[2019-02-22 09:30] LABS: Calcium 9.5 mg/dL (8.4-10.2); Potassium 3.6 mmol/L (3.5-5.1)
[2019-02-22 10:00] LABS: C Reactive Protein 212.7 mg/L (<10.0)
--- NOTE | 2019-02-22 13:58 | P.PN ---
Subjective Progress Note Date: 02/22/19 Principal diagnosis: patient is pleasant 88-year-old female was admitted for elective right knee are 2+ is excessively and underwent surgery. Patient is having low-grade fever toda y because patient that is covered up in sheets since she had a surgery yesterday. a workup for any sepsis clinically patient denied any cough denied any dysuria increased urinary frequency. We will obtain UA with urine culture him a chest x-ray to rule out pneumonia and blood culture. No antibiotics will be started. I recommend to avoid opiate analgesics as patient cannot tolerate these medications. Patient is already on meloxicam which she can continued. patient related GI prophylaxis. 02/21/2019 Patient sitting up at the site of the bed in no acute distress with family visiting. Dressing of the right knee is dry and intact along with knee-high NAREN hose. Patient states that she has been feeling somewhat lethargic and not well this morning and has noticed that she has had off-and-on fever status post surgery. Urinalysis was done yesterday which was unremarkable. Infectious dise ase is consulted and pending at this time. Patient denies any shortness of breath, chest pain, or palpitations at this time. Patient denies any nausea or vomiting and has been tolerating diet. Patient states that she has been getting up and working with physical therapy. 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 Will continue to follow along closely. 02/22/2019 Patient is sitting up in the chair with family at the bedside in no acute distress. Patient is again wrapped up in multiple blankets stating that she feels cold as she always does and likes to wrap up in blankets. No acute overnight events. Patient did have a low-grade temp last night and this morning with no signs of infection. Patient was seen by infectious disease and low- grade fevers were discussed with him. There is no obvious sign of infection or chest x-ray is clear, urinalysis is clean, and blood cultures are negative making the low-grade fevers most likely reactive status post surgery and patient is stable for discharge. Patient denies any shortness of breath, chest pain or palpitations at this time. Currently patient is afebrile per nursing staff. Patient will be going home today with home health care as she did not qualify for rehab. Guarded prognosis. Objective - Vital Signs Vital signs: Vital Signs Temp 99.6 F 02/22/19 07:00 Pulse 79 02/22/19 08:00 Resp 17 02/22/19 08:00 BP 151/73 02/22/19 07:00 Pulse Ox 96 02/22/19 07:00 Intake & Output 02/21/19 02/22/19 02/22/19 18:59 06:59 18:59 Output Total 4 Balance -4 Output: Urine 4 Other: Voiding Method Toilet Toilet Toilet # Voids 1 2 - Exam GENERAL: The patient is alert and oriented x3, not in any acute distress. Well developed, well nourished. HEENT: Pupils are round and equally reacting to light. EOMI. No scleral icterus. No conjunctival pallor. Normocephalic, atraumatic. No pharyngeal erythema. No thyromegaly. CARDIOVASCULAR: S1 and S2 present. No murmurs, rubs, or gallops. PULMONARY: Chest is clear to auscultation, no wheezing or crackles. ABDOMEN: Soft, nontender, nondistended, normoactive bowel sounds. No palpable organomegaly. MUSCULOSKELETAL:post surgically packed right knee, deferred to orthopedic surgery EXTREMITIES: No cyanosis, clubbing, or pedal edema. Mild swelling noted of the right lower extremity has improved. NAREN lopez noted NEUROLOGICAL: Gross neurological examination did not reveal any focal deficits. SKIN: No rashes. Dressing of the right knee is dry and intact. - Labs CBC & Chem 7: 02/22/19 07:42 02/22/19 07:42 Labs: Abnormal Lab Results - Last 24 Hours (Table) 02/22/19 02/22/19 Range/Units 07:42 07:42 RBC 3.12 L (3.80-5.40) m/uL Hgb 9.8 L (11.4-16.0) gm/dL Hct 30.0 L (34.0-46.0) % Plt Count 145 L (150-450) k/uL C-Reactive Protein 212.7 H (<10.0) mg/L Microbiology - Last 24 Hours (Table) 02/20/19 12:59 Blood Culture - Preliminary Blood No Growth after 24 hours Assessment and Plan Assessment: - fever postoperatively: Low-grade fevers no signs or symptoms of infection septic workup as mentioned above.recommend incentive spirometry. Infectious disease consulted for continued low-grade fevers. Low-grade fevers are most likely reactive in nature status post surgery with no signs of infection. -Status post right knee arthroplasty. Avoid opiate analgesia, patient is on aspirin for DVT prophylaxis. 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 Orthopedic surgery is well aware and have been following for quite some time. -osteoarthritis
--- NOTE | 2019-02-22 16:49 | PN ---
PROGRESS NOTE DATE OF SERVICE: 02/22/2019. REASON FOR FOLLOW UP: Postop fever. INTERVAL HISTORY: The patient did have a low-grade fever last night of 100.8. The patient is afebrile this morning. The patient complains of slightly weak and tired, but no other symptoms. No worsening URI symptoms. No chest pain, shortness of breath or cough. No abdominal pain. No diarrhea. PHYSICAL EXAMINATION: Blood pressure 151/73 with a pulse of 79, temperature 98.6. She is 96% on room air. General description is an elderly female up in the chair in no distress. Respiratory system: Unlabored breathing, decreased breath sounds in the bases. No wheeze. Heart S1, S2. Regular rate and rhythm. Abdomen soft, no tenderness. Extremities: No edema of the feet. LABS: Hemoglobin 9.8, white count 7.3 with a BUN of 17, creatinine 1.03. Blood and urine culture has been negative. Influenza swab was negative. DIAGNOSTIC IMPRESSION AND PLAN: Patient with low-grade fever postop, likely reactive with currently no clinical focus of infection. Hence, no need for any systemic antibiotic therapy. White count is normal. All cultures negative. The patient will be started on incentive spirometry. MMODL / IJN: [id number] /
[2019-02-23] MEDS ORDERED: FAMOTIDINE 20 MG TAB PO SCH (09:00)
== END 2019-02-22 14:28 | disposition home health service (06) | DRG 983 ==
LOC: OR 07:45 → 4SSUR 11:33 → OR 11:43 → 4SSUR 02-20 17:38
PROVIDERS: ADMIT Orthopaedic Surgery; ATTEND Orthopaedic Surgery
PROC: 0SRC069 Replacement of Right Knee Joint with Oxidized Zirconium on Polyethylene Synthetic Substitute, Cemented, Open Approach (ICD-10-PCS; principal; 2019-02-19 10:20)
DX: I10 Essential (primary) hypertension (principal); R50.9 Fever, unspecified; K21.9 Gastro-esophageal reflux disease without esophagitis; M17.11 Unilateral primary osteoarthritis, right knee; M21.061 Valgus deformity, not elsewhere classified, right knee; M21.161 Varus deformity, not elsewhere classified, right knee; R09.82 Postnasal drip; M81.0 Age-related osteoporosis without current pathological fracture; Z79.82 Long term (current) use of aspirin; Z79.1 Long term (current) use of non-steroidal anti-inflammatories (NSAID); Z79.899 Other long term (current) drug therapy; Z87.891 Personal history of nicotine dependence; Z96.652 Presence of left artificial knee joint; Z90.710 Acquired absence of both cervix and uterus; Z98.890 Other specified postprocedural states; Z82.49 Family history of ischemic heart disease and other diseases of the circulatory system; Z80.0 Family history of malignant neoplasm of digestive organs; Z98.42 Cataract extraction status, left eye; Z98.41 Cataract extraction status, right eye
CPT/HCPCS: 64448; 71046; 76942; 80048; 81001; 84145; 85025; 86140; 87040; 87502; 88300

== ENCOUNTER → 2020-05-13 | Outpatient (CLI) | payer MEDICARE, OTHER ==
--- NOTE | 2020-05-13 15:04 | BD ---
EXAMINATION TYPE: Axial Bone Density DATE OF EXAM: 05/13/2020 COMPARISON: 04.27.2016 CLINICAL HISTORY: 89 YR OLD FEMALE.....ICD-10 CODE: Z78.0 POST MENOPAUSAL Height: 61.5 Weight: 139 FRAX RISK QUESTIONS: Secondary Osteoporosis: YES 3. Menopause before 45: YES, AT AGE 40 RISK FACTORS HISTORY OF: Family History of Osteoporosis: YES, GRANDMOTHER BUT NO FX OF HIP Active: NO, IN WHEELCHAIR Postmenopausal woman: YES, IN HER EARLY 40s Take estrogen and/or progesterone medications: YES, FOR A SHORT WHILE, NONE NOW Hyperparathyroidism: NO Adrenal Insufficiency: NO MEDICATIONS: Osteoporosis Medications: FOSAMAX WEEKLY FOR 10+ YRS Additional Medications: BP MEDS, REFLUX MEDS, VIT D AND CALCIUM, MULTIVITAMIN Additional History: BILAT TKRs, ARTHRITIS, HYPERTENSION, REFLUX EXAM MEASUREMENTS: Bone mineral densitometry was performed using the [employer] System. Bone mineral density as measured about the Lumbar spine is: ----- L1-L4(G/cm2): 1.136 T Score Values are as follows: ----- L1: 0.3 ----- L2: -0.4 ----- L3: -0.2 ----- L4: -1.1 ----- L1-L4: -0.4 Bone mineral density has: Increased 5.6% since study of: 04.27.2016 Bone mineral density about the R hip (g/cm2): 1.007 Bone mineral density about the L hip (g/cm2): 0.944 T Score values are as follows: -----R Neck: -1.0 -----L Neck: -1.2 -----R Total: 0.0 -----L Total: -0.5 Bone mineral density has: Increased 2.1% since study of: 04.27.2016 FRAX%s: THERE IS 9.7% CHANCE FOR A MAJOR OSTEOPOROTIC FX AND A 2.1% FOR HIP......PROBABILITY FOR FX IN 10 YRS TIME IMPRESSION: Osteopenia (T Score between -2.5 and -1). There is slightly increased risk of fracture and the patient may be considered for treatment. Re-Screen 2-5 years. NOTE: T-SCORE=SD OF THE YOUNG ADULT MEAN.
== END | disposition home or self-care (01) ==
LOC: RADBDWWP 12:41
PROVIDERS: ATTEND Family Medicine
DX: M85.80 Other specified disorders of bone density and structure, unspecified site (principal); Z78.0 Asymptomatic menopausal state
CPT/HCPCS: 77080